=== PATIENT | female | born 1955 | race Caucasian/White ===

== ENCOUNTER 2016-08-05 07:03 | Emergency (ER) | payer BC ==
--- NOTE | 2016-08-05 07:23 | UC ---
FLU HPI - HPI Summary HPI Summary: The patient comes in today for: 1. Body aches, nasal stuffiness, hoarseness: Onset: 5 days. Palliative/provocative: Tylenol helps the body aches. Quality: Ache Region: General body. Severity: 4/10 Time: Constant. Associated symptoms: 2 days ago was feeling good. Fevers: No temperature taken. Rhinitis: Clear. Cough: present, but non-productive. Sore throat: None. Flu vaccine: None. 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 * - History of Current Complaint Chief Complaint: UCRespiratory Stated Complaint: COUGH/STUFFY HEAD/ACHY Time Seen by Provider: 08/05/16 07:16 Hx Last Menstrual Period: years ago. ?: No - Allergy/Home Medications Allergies/Adverse Reactions: Allergies Allergy/AdvReac Type Severity Reaction Status Date / Time No Known Allergies Allergy Verified 08/05/16 07:09 PMH/Surg Hx/FS Hx/Imm Hx Previously Healthy: No - Rheumatoid arthritis. Endocrine History Of: Reports: Diabetes - Borderline--diet controlled. , Dyslipidemia Denies: Thyroid Disease, Hyperthyroidism, Hypothyroidism Cardiovascular History Of: Reports: Hypertension Denies: Cardiac Disorders, Pacemaker/ICD, Myocardial Infarction, Congestive Heart Failure, Atrial Fibrillation, Deep Vein Thrombosis, Bleeding Disorders Respiratory History Of: Denies: COPD, Asthma GI/ History Of: Reports: Gastroesophageal Reflux Denies: Ulcer, Gastrointestinal Bleed, Gall Bladder Disease, Kidney Stones, Diverticulitis, Renal Disease, Urosepsis Neurological History Of: Denies: TIA, CVA, Dementia, Seizures, Migraine Psychological History Of: Denies: Anxiety, Depression, Bipolar Disorder, Schizophrenia, Post Traumatic Stress Disorder Cancer History Of: Reports: Breast Cancer - left, 2012 Denies: Lung Cancer, Colorectal Cancer, Prostate Cancer, Cervical Cancer Other History Of: Hepatitis B - She had hepatitis when she was 16 years old-- type is unknown. Negative For: HIV, Hepatitis C, Anticoagulant Therapy - Surgical History Surgical History: Yes Surgery Procedure, Year, and Place: Left Breast Lumpectomy, 2012, [place]. Complete Hysterectomy, (age-37) 1992, [facility] - Family History Known Family History: Positive: Hypertension, Diabetes - Social History Alcohol Use: Occasionally Substance Use Type: None Smoking Status (MU): Former Smoker Have You Smoked in the Last Year: No When Did the Patient Quit Smoking/Using Tobacco: 35 years ago - Immunization History Most Recent Influenza Vaccination: Not this Season Review of Systems Constitutional: Negative Skin: Negative Eyes: Negative ENT: Nasal Discharge Respiratory: Cough Cardiovascular: Negative Gastrointestinal: Negative Musculoskeletal: Arthralgia, Myalgia All Other Systems Reviewed And Are Negative: Yes Physical Exam Triage Information Reviewed: Yes Appearance: Well-Appearing, No Pain Distress, Well-Nourished Vital Signs: Initial Vital Signs Temp 98.3 F 08/05/16 07:11 Pulse 72 08/05/16 07:11 Resp 18 08/05/16 07:11 BP 120/78 08/05/16 07:11 Pulse Ox 98 08/05/16 07:11 Vital Signs Reviewed: Yes Eyes: Positive: Conjunctiva Clear. Negative: Discharge ENT: Positive: Hearing grossly normal, Nasal congestion, Muffled/hoarse voice. Negative: Pharyngeal erythema, Nasal drainage, TM bulging, TM dull, TM red, Tonsillar swelling, Tonsillar exudate Dental: Negative: Gross Decay/Caries @, Dental Fracture @ Neck: Positive: Supple, Nontender, No Lymphadenopathy. Negative: Nuchal Rigidity Respiratory: Positive: Chest non-tender, Lungs clear, No respiratory distress, No accessory muscle use. Negative: Respiratory distress, Crackles, Wheezing Cardiovascular: Positive: RRR, No Murmur Abdomen Description: Positive: Nontender, No Organomegaly, Soft. Negative: Distended, Guarding Musculoskeletal: Positive: Strength Intact, ROM Intact Neurological: Positive: Alert, Muscle Tone Normal Psychological: Positive: Age Appropriate Behavior, Consolable Skin: Negative: rashes, breakdown Flu Course/Dx - Course Course Of Treatment: Patient was told that she appears to have viral syndrome. She was offered flu testing, and treatment, but she declined. She declined any NSAIDS. Discussion on antibitoics ensued, and how I did not think that they would help, but she countered stating that she develops upper respiratory bacterial infections and wanted an antibiotic prescription anyway. - Differential Dx/Diagnosis Provider Diagnoses: viral syndrome. upper respiratory infection. Discharge - Discharge Plan Condition: Stable Disposition: HOME Patient Education Materials: Viral Syndrome (ED), Upper Respiratory Infection ( ED) Referrals: Loulou Salazar PA [Primary Care Provider] - 1 Week (Please see your primary care provider in about a week to see how well you are doing. If you get worse, please be seen sooner.)
[2016-08-05 07:30] VITALS: BP 120/78
== END 2016-08-05 07:48 | disposition home or self-care (01) ==
LOC: UCCORT 07:03
DX: B34.9 Viral infection, unspecified (principal); J06.9 Acute upper respiratory infection, unspecified; Z85.3 Personal history of malignant neoplasm of breast; Z87.891 Personal history of nicotine dependence
CPT/HCPCS: 99212; G0463

== ENCOUNTER 2017-04-03 16:49 | Emergency (ER) | payer BC ==
[2017-04-03 17:57] VITALS: BP 158/83
--- NOTE | 2017-04-03 18:31 | RAD ---
Indication: LEFT ankle pain and swelling following injury one month ago. Comparison: No relevant prior exams available on the [facility] [place] PACS for comparison. Technique: AP, mortise, and lateral views LEFT ankle. Report: Normal articular alignment and preserved joint spaces. Negative for fracture or osteochondral lesion. No suggestion of talocrural joint effusion. Minimal Achilles tendon insertion bone spur. Unremarkable soft tissue contours. IMPRESSION: Negative exam.
--- NOTE | 2017-04-03 18:50 | UC ---
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 ?: No Onset/Duration: Sudden Onset, Lasting Weeks, Worse Since - past few days Severity Initially: Mild Severity Currently: Moderate Pain Intensity: 6 Pain Scale Used: 0-10 Numeric Aggravating Factor(s): Standing, Ambulation Alleviating Factor(s): Rest, Elevation Able to Bear Weight: Yes - Allergies/Home Medications Allergies/Adverse Reactions: Allergies Allergy/AdvReac Type Severity Reaction Status Date / Time No Known Allergies Allergy Verified 04/03/17 17:57 PMH/Surg Hx/FS Hx/Imm Hx Previously Healthy: No Endocrine History: Dyslipidemia Cardiovascular History: Hypertension GI/ History: Gastroesophageal Reflux Other History Of: Hepatitis B - She had hepatitis when she was 16 years old-- type is unknown. Negative For: HIV, Hepatitis C, Anticoagulant Therapy - Surgical History Surgical History: Yes Surgery Procedure, Year, and Place: Left Breast Lumpectomy, 2012, [place]. Complete Hysterectomy, (age-37) 1992, [facility] - Family History Known Family History: Positive: Hypertension, Diabetes - Social History Occupation: Employed Full-time Lives: With Family Alcohol Use: Occasionally Substance Use Type: None Smoking Status (MU): Former Smoker Have You Smoked in the Last Year: No When Did the Patient Quit Smoking/Using Tobacco: 35 years ago - Immunization History Most Recent Influenza Vaccination: Not this Season Review of Systems Constitutional: Negative Skin: Negative Eyes: Negative ENT: Negative Respiratory: Negative Cardiovascular: Negative Gastrointestinal: Negative Genitourinary: Negative Motor: Negative Neurovascular: Negative Musculoskeletal: Arthralgia - lateral left ankle, Edema Neurological: Negative Psychological: Negative Is Patient Immunocompromised?: No All Other Systems Reviewed And Are Negative: Yes Physical Exam Triage Information Reviewed: Yes Appearance: Well-Appearing, No Pain Distress, Well-Nourished Vital Signs: Initial Vital Signs Temp 98.6 F 04/03/17 17:49 Pulse 59 04/03/17 17:49 Resp 12 04/03/17 17:49 BP 158/83 04/03/17 17:49 Pulse Ox 96 04/03/17 17:49 Vital Signs Reviewed: Yes Eye Exam: Normal Eyes: Positive: Conjunctiva Clear ENT Exam: Normal ENT: Positive: Normal ENT inspection, Hearing grossly normal. Negative: Nasal congestion, Nasal drainage, Trismus, Muffled/hoarse voice Dental Exam: Normal Neck exam: Normal Neck: Positive: Supple, Nontender Respiratory Exam: Normal Respiratory: Positive: Chest non-tender, No respiratory distress, No accessory muscle use Cardiovascular Exam: Normal Cardiovascular: Positive: RRR, Pulses Normal, Brisk Capillary Refill Musculoskeletal Exam: Normal Musculoskeletal: Positive: No Edema, Strength Limited @ - left ankle, ROM Limited @ - left ankle Neurological Exam: Normal Neurological: Positive: Alert, Muscle Tone Normal Psychological Exam: Normal Psychological: Positive: Normal Response To Family Skin Exam: Normal Diagnostics - Radiology No standard instances Xray Interpretation: No Acute Changes Radiology Interpretation Completed By: ED Physician, Radiologist Lower Extremity Course/Dx - Course Course Of Treatment: cam boot, rice, tylenol/ibuprofen follow with ortho this week - Differential Dx/Diagnosis Differential Diagnosis/HQI/PQRI: Contusion, Fracture (Closed), Sprain, Strain Provider Diagnoses: Left ankle injury Discharge - Discharge Plan Condition: Stable Disposition: HOME Patient Education Materials: Hypertension (ED), RICE Therapy (ED), Swollen Ankle Joint (ED) Referrals: Pérez Chaudhary MD [Medical Doctor] - 5 Days Loulou Salazar PA [Primary Care Provider] - 2 Weeks
== END 2017-04-03 19:07 | disposition home or self-care (01) ==
LOC: UCCORT 16:49
DX: Z87.891 Personal history of nicotine dependence (principal); S99.912A Unspecified injury of left ankle, initial encounter; X50.1XXA Overexertion from prolonged static or awkward postures, initial encounter; Y93.9 Activity, unspecified; Y92.9 Unspecified place or not applicable; Y99.9 Unspecified external cause status
CPT/HCPCS: 99212; G0463

== ENCOUNTER 2017-05-12 16:24 | Emergency (ER) | payer BC ==
[2017-05-12 16:50] VITALS: BP 132/82
--- NOTE | 2017-05-12 17:36 | UC ---
Throat Pain/Nasal Adalberto HPI - HPI Summary HPI Summary: Nasal congestion and yellow drainage for about 4-5 days. There is no fever or facial/dental pain. - History of Current Complaint Chief Complaint: UCRespiratory Stated Complaint: CONGESTION Time Seen by Provider: 05/12/17 17:27 Hx Obtained From: Patient Hx Last Menstrual Period: n/a Onset/Duration: Gradual Onset, Lasting Days Severity: Mild Cough: Nonproductive Associated Signs & Symptoms: Positive: Nasal Discharge. Negative: Dysphagia, Sinus Discomfort, Fever, Vomiting, Rash - Epiglottits Risk Factors Epiglottis Risk Factors: Negative - Allergies/Home Medications Allergies/Adverse Reactions: Allergies Allergy/AdvReac Type Severity Reaction Status Date / Time No Known Allergies Allergy Verified 05/12/17 16:49 PMH/Surg Hx/FS Hx/Imm Hx Previously Healthy: Yes Other History Of: Hepatitis B - She had hepatitis when she was 16 years old-- type is unknown. Negative For: HIV, Hepatitis C, Anticoagulant Therapy - Surgical History Surgical History: Yes Surgery Procedure, Year, and Place: Left Breast Lumpectomy, 2012, [place]. Complete Hysterectomy, (age-37) 1992, [facility] - Family History Known Family History: Positive: Hypertension, Diabetes - Social History Alcohol Use: Occasionally Substance Use Type: None Smoking Status (MU): Former Smoker Have You Smoked in the Last Year: No When Did the Patient Quit Smoking/Using Tobacco: 35 years ago - Immunization History Most Recent Influenza Vaccination: Not this Season Review of Systems ENT: Sinus Congestion All Other Systems Reviewed And Are Negative: Yes Physical Exam Triage Information Reviewed: Yes Appearance: Well-Appearing, No Pain Distress, Well-Nourished Vital Signs: Initial Vital Signs Temp 98.2 F 05/12/17 16:47 Pulse 71 05/12/17 16:47 Resp 16 05/12/17 16:47 BP 132/82 05/12/17 16:47 Pulse Ox 97 05/12/17 16:47 Vital Signs Reviewed: Yes Eyes: Positive: Conjunctiva Clear ENT: Positive: Nasal congestion, Uvula midline. Negative: Pharyngeal erythema, Nasal drainage, TMs normal, TM bulging, TM dull, TM red, Tonsillar swelling, Tonsillar exudate, Trismus, Muffled voice, Hoarse voice, Dental tenderness, Sinus tenderness Neck: Positive: Supple, Nontender, No Lymphadenopathy Respiratory: Positive: Chest non-tender, Lungs clear, Normal breath sounds, No respiratory distress, No accessory muscle use. Negative: Respiratory distress, Decreased breath sounds, Accessory muscle use, Crackles, Rhonchi, Stridor Cardiovascular: Positive: RRR, No Murmur, Pulses Normal, Brisk Capillary Refill , Tachycardia Abdomen Description: Positive: Nontender, No Organomegaly, Soft, Bruit. Negative: CVA Tenderness (R), CVA Tenderness (L), Distended, Guarding Musculoskeletal: Positive: Strength Intact, ROM Intact, No Edema Neurological: Positive: Alert, Muscle Tone Normal. Negative: Fatigued Skin: Negative: rashes Throat Pain/Nasal Course/Dx - Course Course Of Treatment: URI. - Differential Dx/Diagnosis Provider Diagnoses: uri Discharge - Discharge Plan Condition: Good Disposition: HOME Prescriptions: Amoxicillin PO (*) [Amoxicillin 500 MG CAP*] 500 mg PO TID #30 cap Patient Education Materials: Upper Respiratory Infection (ED) Referrals: Loulou Salazar PA [Primary Care Provider] - If Needed Additional Instructions: Decongestants and/or netti pot.
== END 2017-05-12 17:40 | disposition home or self-care (01) ==
LOC: UCCORT 16:24
DX: J06.9 Acute upper respiratory infection, unspecified (principal); Z87.891 Personal history of nicotine dependence
CPT/HCPCS: 99212; G0463

== ENCOUNTER 2018-05-17 14:58 | Emergency (ER) | payer BC ==
[2018-05-17 15:35] VITALS: BP 133/77
--- NOTE | 2018-05-17 15:53 | UC ---
Throat Pain/Nasal Adalberto HPI - HPI Summary HPI Summary: 63-year-old female presents with onset of general malaise, fatigue, body aches, subjective fever, chills, mild nasal congestion, sore throat, and a nonproductive cough 5 days ago. States fever, chills, and body aches subsided 2 days ago but continues to have other symptoms. Denies headache, sinus pain, ear pain, dysphagia, chest pain, shortness of breath, abdominal pain, nausea, or vomiting. Has not received flu shot this year. - History of Current Complaint Chief Complaint: UCGeneralIllness Stated Complaint: ST,COUGH Time Seen by Provider: 05/17/18 15:34 Hx Obtained From: Patient Hx Last Menstrual Period: n/a Onset/Duration: Sudden Onset, Lasting Days - 5 Severity: Moderate Pain Intensity: 7 Cough: Nonproductive Associated Signs & Symptoms: Positive: Nasal Discharge, Fever. Negative: Dysphagia, Drooling, Wheezing, Hoarseness, Sinus Discomfort, Vomiting, Rash - Allergies/Home Medications Allergies/Adverse Reactions: Allergies Allergy/AdvReac Type Severity Reaction Status Date / Time Sulfa (Sulfonamide Allergy Unknown Verified 05/17/18 15:35 Antibiotics) Reaction Details Home Medications: Home Medications D-Methorphan/PE/Acetaminophen [Day Time Cold-Flu Liquid] 1 each PO ONCE [History Confirmed 05/17/18] Itraconazole 100 mg PO BID 05/17/18 [History Confirmed 05/17/18] PMH/Surg Hx/FS Hx/Imm Hx Cardiovascular History: Hypertension GI/ History: Gastroesophageal Reflux Other History Of: Hepatitis B - She had hepatitis when she was 16 years old-- type is unknown. Negative For: HIV, Hepatitis C, Anticoagulant Therapy - Surgical History Surgical History: Yes Surgery Procedure, Year, and Place: Left Breast Lumpectomy, 2012, [place]. Complete Hysterectomy, (age-37) 1992, [facility] - Family History Known Family History: Positive: Hypertension, Diabetes - Social History Occupation: Employed Full-time Lives: With Family Alcohol Use: Occasionally Substance Use Type: None Smoking Status (MU): Former Smoker Have You Smoked in the Last Year: No When Did the Patient Quit Smoking/Using Tobacco: 35 years ago - Immunization History Most Recent Influenza Vaccination: Not this Season Review of Systems Constitutional: Fever, Chills, Fatigue Skin: Negative Eyes: Negative ENT: Sore Throat, Nasal Discharge Respiratory: Cough Cardiovascular: Negative Gastrointestinal: Negative Is Patient Immunocompromised?: No All Other Systems Reviewed And Are Negative: Yes Physical Exam Triage Information Reviewed: Yes Appearance: Well-Appearing, No Pain Distress, Well-Nourished Vital Signs: Initial Vital Signs Temp 98.1 F 05/17/18 15:31 Pulse 71 05/17/18 15:31 Resp 17 05/17/18 15:31 BP 133/77 05/17/18 15:31 Pulse Ox 98 05/17/18 15:31 Eyes: Positive: Conjunctiva Clear. Negative: Discharge ENT: Positive: Hearing grossly normal, Pharyngeal erythema - Mild, Nasal congestion, TMs normal, Uvula midline. Negative: Nasal drainage, Tonsillar swelling, Tonsillar exudate, Trismus, Muffled voice, Sinus tenderness Neck: Positive: Supple, Nontender, No Lymphadenopathy Respiratory: Positive: Chest non-tender, Lungs clear, Normal breath sounds, No respiratory distress Cardiovascular: Positive: RRR, No Murmur Neurological: Positive: Alert Skin Exam: Normal Throat Pain/Nasal Course/Dx - Course Course Of Treatment: 63 year old female with 5 day history of flulike illness. Afebrile at time of exam. Exam remarkable for some nasal congestion, mild pharyngeal erythema, and a dry nonproductive cough. Symptoms are likely viral. Deferred flue testing at this time states patient has been symptomatic for 5 days. Recommend symptomatic treatment. She is to follow-up with her primary care provider in 7 days if no improvement in symptoms. Warning symptoms were reviewed with the patient. She verbalizes understanding and agrees with plan of care. - Differential Dx/Diagnosis Differential Diagnosis/HQI/PQRI: Influenza, Pharyngitis, Tonsillitis, URI Provider Diagnoses: Viral URI Discharge - Sign-Out/Discharge Documenting (check all that apply): Patient Departure All imaging exams completed and their final reports reviewed: No Studies - Discharge Plan Condition: Stable Disposition: HOME Prescriptions: Benzonatate CAP* [Tessalon 100 MG CAP*] 100 mg PO TID PRN #30 cap PRN Reason: Cough Patient Education Materials: Upper Respiratory Infection (ED) Referrals: Loulou Salazar PA [Primary Care Provider] - 7 Days (If no improvement) Additional Instructions: Your history and exam are consistent with viral upper respiratory infection. Viral infections do not respond to antibiotics and typically run their course over 7-10 days. Use a saline rinse kit such as Neti Pot or NeilMed at least twice a day. Start over the counter fluticasone (Flonase) nasal spray 2 sprays each nostril once a day. Take acetaminophen (Tylenol) or ibuprofen (Advil, Motrin) according to directions as needed for fever or pain. Use salt water gargles several times a day if you have a sore throat. You may also use Chloraseptic spray or Cepacol lozenges for some temporary pain relief from your sore throat. Use Tessalon Perles 1 cap every 8 hours as needed for cough. Follow-up with your primary care provider in 7 days if symptoms persist. Seek immediate medical attention if you have a persistent fever greater than 100.5 F despite taking acetaminophen or ibuprofen, you are unable to swallow, has difficulty breathing, or have any worsening of symptoms. - Billing Disposition and Condition Condition: STABLE Disposition: Home
== END 2018-05-17 15:57 | disposition home or self-care (01) ==
LOC: UCCORT 14:58
DX: J06.9 Acute upper respiratory infection, unspecified (principal); I10 Essential (primary) hypertension; K21.9 Gastro-esophageal reflux disease without esophagitis; Z88.2 Allergy status to sulfonamides; Z87.891 Personal history of nicotine dependence; Z86.19 Personal history of other infectious and parasitic diseases
CPT/HCPCS: 99212; G0463

== ENCOUNTER 2018-05-19 16:50 | Emergency (ER) | payer BC ==
[2018-05-19 17:35] VITALS: BP 146/76
--- NOTE | 2018-05-19 17:51 | UC ---
Throat Pain/Nasal Adalberto HPI - HPI Summary HPI Summary: Patient presents to urgent care with a days of progressive congestion cough and no sore throat. Patient states the cough is not productive. Patient was seen here on Wednesday for similar symptoms. Patient states she was given supportive care and treatment included Flonase. Patient's been taking Motrin Tylenol. Patient's been taking Tessalon Perles as well as [id number] decongestant. Patient states her sore throat is getting worse. Patient states it goldsmith all the way down when she tries to swallow. Patient denies chills but states low- grade fevers. Patient without headache or vision changes. Patient without ear pain. Patient status post radiation 5 years for left-sided breast cancer. Patient does not have any known lung disease. Patient's medications reviewed this visit - History of Current Complaint Chief Complaint: UCGeneralIllness Stated Complaint: SORE THROAT Time Seen by Provider: 05/19/18 17:36 Hx Obtained From: Patient Hx Last Menstrual Period: n/a ?: No Severity: Moderate Pain Intensity: 8 Pain Scale Used: 0-10 Numeric - Allergies/Home Medications Allergies/Adverse Reactions: Allergies Allergy/AdvReac Type Severity Reaction Status Date / Time Sulfa (Sulfonamide Allergy Unknown Verified 05/19/18 17:30 Antibiotics) Reaction Details PMH/Surg Hx/FS Hx/Imm Hx Previously Healthy: Yes Cancer History: Breast Cancer Other History Of: Hepatitis B - She had hepatitis when she was 16 years old-- type is unknown. Negative For: HIV, Hepatitis C, Anticoagulant Therapy - Surgical History Surgical History: Yes Surgery Procedure, Year, and Place: Left Breast Lumpectomy, 2012, [place]. Complete Hysterectomy, (age-37) 1992, [facility] - Family History Known Family History: Positive: Hypertension, Diabetes - Social History Occupation: Employed Full-time Lives: With Family Alcohol Use: Occasionally Substance Use Type: None Smoking Status (MU): Former Smoker Have You Smoked in the Last Year: No When Did the Patient Quit Smoking/Using Tobacco: 35 years ago - Immunization History Most Recent Influenza Vaccination: Not this Season Review of Systems All Other Systems Reviewed And Are Negative: Yes Constitutional: Positive: Fever - low grade ENT: Positive: Sore Throat, Sinus Congestion Respiratory: Positive: Cough Is Patient Immunocompromised?: No Physical Exam - Summary Physical Exam Summary: Vital Signs Reviewed: Yes A+Ox3, no distress Eyes: Conjunctiva Clear, GIOVANNI. EOM intact and full ENT: Hearing grossly normal TM x 2 clear, turninates boggy, mild PND, mmoist, uvula midline, no exudate, no erythema Neck: Positive: Supple Respiratory: Positive: No respiratory distress, No accessory muscle use + CTA throughout few scattered wheeze L>R no rhonci no cough Cardiovascular: RRR nl s1, s2 no m/r CBT <2 sec abd soft + BS nt/nd no guarding, no distension Musculoskeletal Exam: WADE x 4 without difficulty Strength Intact, ROM Intact Neurological: Positive: Alert, + sensation throughout Psychological: Positive: Normal Response To Family Skin: Positive: no rash, no ecchymosis Triage Information Reviewed: Yes Vital Signs: Initial Vital Signs Temp 99.2 F 05/19/18 17:30 Pulse 71 05/19/18 17:30 Resp 18 05/19/18 17:30 BP 146/76 05/19/18 17:30 Pulse Ox 99 05/19/18 17:30 Re-Evaluation - Re-Evaluation First Eval Re-Evaluation Time: 18:47 Change: Improved Comment: wheezing resolved. pt states throat pain improved, but does not want for home. Doxy. MDI. diflucan prn. continue flonase. return precautions. secretion precaution Throat Pain/Nasal Course/Dx - Course Course Of Treatment: Patient presents with 7 days progressive congestion cough and sore throat. Patient was seen here on Wednesday given supportive treatment. Patient states his sore throat has gotten worse. Patient also with a slight wheezes and nonproductive cough. On exam vital signs are stable. Patient does have wheezing left side. We'll give a DuoNeb and check viscous lidocaine. Rapid strep is negative. Likely will serve course of antibiotics for bronchitis this patient's been sick for over a week and seems that she is progressing worse. Patient comfortable in agreement with plan. We'll reassess after neb. BP slightly elevated - f/u with PCP - Differential Dx/Diagnosis Provider Diagnoses: acute bronchitis Discharge - Sign-Out/Discharge Documenting (check all that apply): Patient Departure All imaging exams completed and their final reports reviewed: No Studies - Discharge Plan Condition: Stable Disposition: HOME Prescriptions: Albuterol HFA INHALER* [Ventolin HFA Inhaler*] 2 puff INH Q4H PRN #1 mdi PRN Reason: wheeze DOXYcycline CAP(*) [DOXYcycline 100MG CAP(*)] 100 mg PO BID #14 cap Fluconazole [Diflucan 150 MG (NF)] 150 mg PO ONCE PRN #1 tab PRN Reason: vaginal yeast infection Patient Education Materials: Acute Bronchitis (ED) Forms: *Work Release Referrals: Loulou Salazar PA [Primary Care Provider] - Additional Instructions: -Take antibiotics exactly as prescribed until gone -Use your albuterol puffer - 2 puffs ever 4-6 hours for the next 2 days - then as needed -continue with flonase -Stay well hydrated - avoid excess caffeine and all alcohol - eat regular, healthy meals - - humidify the air in the room where you sleep - boil water, run a hot steam shower, vaporizer, cups of water by heat register - okay to take over the counter decongestant and cough medication -- These infections are spread by secretions - do NOT share eating or drinking utensils - clean items you share with other people such as cell phones, computer mouse, TV remote, computer tablets,etc.. Once you have been antibiotics for 2 days, change your toothbrush and your pillowcase. - you were given a prescription to treat yeast infection - if you develop a yeast infection from the antibiotic, okay to take as prescribed -Contact your doctor to arrange a follow-up appointment this week. Call your doctor, return here or go to the emergency department with any questions or concerns - Billing Disposition and Condition Condition: STABLE Disposition: Home
[2018-05-19] MEDS ORDERED: Albuterol/Ipratropium NEB.SOL* Albuterol 2.5 MG/Ipratropium 0.5 MG 3 ML INH ONE (18:01)
[2018-05-19] MEDS ORDERED: Lidocaine 2% VISCOUS* 15 ML UDC PO ONE (18:01)
== END 2018-05-19 19:01 | disposition home or self-care (01) ==
LOC: UCCORT 16:50
DX: J20.9 Acute bronchitis, unspecified (principal); Z88.2 Allergy status to sulfonamides; Z87.891 Personal history of nicotine dependence
CPT/HCPCS: 87651; 99212; A9270-GY; G0463

== ENCOUNTER 2018-05-22 07:02 | Emergency (ER) | payer BC ==
[2018-05-22 07:18] VITALS: BP 131/63
--- NOTE | 2018-05-22 07:40 | UC ---
Respiratory Complaint HPI - HPI Summary HPI Summary: This is third [facility] visit for this 63-year-old female in the past 5 or 6 days. She has been ill for approximately a week and a half. She has had cough and wheezing. He denies any chest pain or shortness of breath. She has had no fever or chills. She was started on a metered dose inhaler and doxycycline a few days ago's. She has not improved. She has a remote history of smoking. She has a history of breast cancer. There's been no nausea vomiting or diarrhea. - History of Current Complaint Chief Complaint: UCRespiratory Stated Complaint: COUGH Time Seen by Provider: 05/22/18 07:27 Hx Obtained From: Patient Hx Last Menstrual Period: n/a Onset/Duration: Gradual Onset, Lasting Days Timing: Constant Severity Initially: Mild Severity Currently: Moderate Pain Intensity: 0 Pain Scale Used: 0-10 Numeric Character: Cough: Productive - at times Alleviating Factors: Bronchodilator Associated Signs And Symptoms: Positive: Wheezing - Allergies/Home Medications Allergies/Adverse Reactions: Allergies Allergy/AdvReac Type Severity Reaction Status Date / Time Sulfa (Sulfonamide Allergy Unknown Verified 05/22/18 07:14 Antibiotics) Reaction Details Home Medications: Home Medications Lansoprazole CAP (NF) [Prevacid CAP (NF)] 30 mg PO DAILY 05/22/18 [History Confirmed 05/22/18] amLODIPine TAB* [Norvasc 5 mg TAB*] 2.5 mg PO DAILY 05/22/18 [History Confirmed 05/22/18] PMH/Surg Hx/FS Hx/Imm Hx Previously Healthy: Yes Cardiovascular History: Hypertension Respiratory History: Bronchitis, Pneumonia Cancer History: Breast Cancer Other History Of: Hepatitis B - She had hepatitis when she was 16 years old-- type is unknown. Negative For: HIV, Hepatitis C, Anticoagulant Therapy - Surgical History Surgical History: Yes Surgery Procedure, Year, and Place: Left Breast Lumpectomy, 2012, [place]. Complete Hysterectomy, (age-37) 1992, [facility] - Family History Known Family History: Positive: Hypertension, Diabetes - Social History Alcohol Use: Occasionally Substance Use Type: None Smoking Status (MU): Former Smoker Length of Time of Smoking/Using Tobacco: ~1 PPD x 8 Years Have You Smoked in the Last Year: No When Did the Patient Quit Smoking/Using Tobacco: ~1977 - Immunization History Most Recent Influenza Vaccination: Not this Season Review of Systems All Other Systems Reviewed And Are Negative: Yes Constitutional: Positive: Fatigue Skin: Positive: Negative Eyes: Positive: Negative ENT: Positive: Negative Respiratory: Positive: Cough, Other - wheezing Cardiovascular: Positive: Negative Gastrointestinal: Positive: Negative Genitourinary: Positive: Negative Motor: Positive: Negative Neurovascular: Positive: Negative Musculoskeletal: Positive: Negative Neurological: Positive: Negative Psychological: Positive: Negative Physical Exam Triage Information Reviewed: Yes Appearance: Well-Appearing, No Pain Distress, Well-Nourished Vital Signs: Initial Vital Signs Temp 98.6 F 05/22/18 07:11 Pulse 66 05/22/18 07:11 Resp 18 05/22/18 07:11 BP 131/63 05/22/18 07:11 Pulse Ox 98 05/22/18 07:11 Vital Signs Reviewed: Yes Eyes: Positive: Conjunctiva Clear ENT: Positive: Hearing grossly normal. Negative: Nasal congestion, Nasal drainage, Trismus, Muffled voice, Hoarse voice Neck: Positive: Supple, Nontender, No Lymphadenopathy Respiratory: Positive: No respiratory distress, No accessory muscle use, Wheezing - with forced exp R>L Cardiovascular: Positive: RRR, No Murmur. Negative: Tachycardia, Bradycardia Musculoskeletal: Positive: ROM Intact, No Edema Neurological: Positive: Alert Psychological Exam: Normal Skin Exam: Normal UC Diagnostic Evaluation - Laboratory O2 Sat by Pulse Oximetry: 98 - Radiology Radiology Interpretation Completed By: Radiologist Summary of Radiographic Findings: 0.5 CM RIGHT LOWER LUNG NODULE. GIVEN THE HISTORY OF MALIGNANCY, NEOPLASM IS WITHIN THE. DIFFERENTIAL. RECOMMEND CONSIDERATION OF FURTHER EVALUATION WITH CT OF THE CHEST IN THE. NONACUTE SETTING Respiratory Course/Dx - Differential Dx/Diagnosis Provider Diagnoses: Acute Bronchitis with bronchospasm. pulmonary nodule RLL Discharge - Sign-Out/Discharge Documenting (check all that apply): Patient Departure All imaging exams completed and their final reports reviewed: Yes - Discharge Plan Condition: Stable Disposition: HOME Prescriptions: predniSONE [Deltasone 20 MG TAB] 40 mg PO DAILY #10 tab Patient Education Materials: Acute Bronchitis (ED), Pulmonary Nodules (ED) Forms: *Work Release Referrals: Loulou Salazar PA [Primary Care Provider] - (recheck in 4 days if not improved) Additional Instructions: the radiologist made note of a 5mm pulmonary nodule in your right lower lung he has suggested you have a CT scan of your chest this can be ordered by your primary care provider recheck for new or worsening symptoms - Billing Disposition and Condition Condition: STABLE Disposition: Home
== END 2018-05-22 08:15 | disposition home or self-care (01) ==
LOC: UCCORT 07:02
DX: J20.9 Acute bronchitis, unspecified (principal); R91.1 Solitary pulmonary nodule; Z87.891 Personal history of nicotine dependence; Z85.3 Personal history of malignant neoplasm of breast; Z88.1 Allergy status to other antibiotic agents; I10 Essential (primary) hypertension
CPT/HCPCS: 71046; 99212; G0463

== ENCOUNTER 2018-06-03 14:29 | Emergency (ER) | payer BC ==
--- OUTSIDE RECORDS SUMMARY | 2018-06-03 16:03 | XMS REPORT ---
:1955 External Reference #:[id number] Author Organization [facility] Address [address], [address] [place] [address] Phone [phone] Care Team Providers Name Role Phone Karol Salazar RPAC Care Team Information Interactive Media Director Unavailable Karol Salazar RPAC Primary Care Physician Unavailable Payers Type Date Identification Numbers Payment Provider Subscriber Commercial Effective: Policy Number: Katie Sims 2011 [id number] Group Number: [id number] [address] [address] Group Name: [id number] PayID: [id number] Problems Date Description Provider Status Onset: 07/03/2003 Localized, primary osteoarthritis of Active the hand Onset: 03/18/2014 Hyperglycemia Karol Salazar RPAC Active Onset: 08/25/2011 Hyperlipidemia Karol Salazar RPAC Active Onset: 08/25/2011 Benign essential hypertension Karol Salazar RPAC Active Onset: 08/25/2011 Diverticular disease of colon Karol Salazar RPAC Active Onset: 08/25/2011 Contact dermatitis due to detergent Karol Salazar RPAC Active Onset: 11/30/2014 Undifferentiated connective tissue Karol Salazar RPAC Active disease Note: 2013 Onset: 01/10/2015 Infiltrating duct carcinoma of Karol Salazar RPAC Active breast Note: left, 2012 Onset: 03/24/2017 Screening for malignant neoplasm of Young Tuan, MD Active colon Onset: 03/24/2017 Heartburn Jose Dickerson MD Active Onset: 04/07/2017 Polyp of colon Karol Salazar [facility] Active Note: SSA/P 03/2017 Onset: 03/23/2018 Gastro-esophageal reflux disease with Jose Dickerson MD Active esophagitis Onset: 03/23/2018 Hemorrhage of rectum and anus Jose Dickerson MD Active Onset: 05/14/2017 Gastro-esophageal reflux disease with Jose Dickerson MD Active esophagitis Family History Date Family Member(s) Problem(s) Comments General Non Contributory Father Arthritis inflammatory Mother due to Diabetes () Mother due to Hypertension () Mother due to Macular degeneration () Social History Type Date Description Comments Marital Status Lives With Spouse Home Environment Lives With Diet Patient follows no dietary restrictions 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 active 09/16/2015 Arimidex vaginal dryness active 10/16/2014 NKDA inactive Medications Medication Date Status Form Strength Qnty SIG Indications Ordering Provider Ceftin 05/27/ Active Tablets 500mg 20tabs 1 tab by Ang2017 mouth twice Lc, a day M.DAdrian Cheratussin ac 05/27/ Active Syrup 100-10mg/ 236ml 5-10 Ang 2017 5ML milliliters Lc, by mouth M.DAdrian every 4 hour as needed cough Itraconazole 02/25/ Hx Capsules 100mg 180caps 1 po bid B35.1 Ang 2017 - Lc 07/11/ Hemal 2018 Lansoprazole 07/29/ Active Capsules 15mg 90caps 1 By Mouth Bisi Fry DR Every Day Hemal Platt Amlodipine 01/10/ Active Tablets 2.5mg 90tabs Take 1 I10 Ramakrishna Fry 2015 Tablet Daily Hemal Platt Vitamin D 00/ Active Tablets 1000Unit 1 by mouth Unknown 0000 every day Calcium 600+D / Active Tablets 600-400mg 1 by mouth Unknown High Potency 0000 -Unit daily Lansoprazole 03/27/ Hx Capsules 30mg 90caps Take 1 Ang 2017 - DR Tamera Platt, 07/29/ Daily M.D. 2018 Dulcolax 03/24/ Hx Tablets 5mg 4tabs [address] taken a 8pm MD Tuan the day before the procedure Magnesium 03/24/ Hx Solution 1.745GM/3 296ml 1 bottle po Z12. Young Citrate 2016 0ML x one as MD Tuan directed Suprep Bowel 03/24/ Hx Solution 17.5-3.13 1kit /2 Z12. Young Prep Kit 2017 -1.6GM/ afternoon MD Tuan 0ML before and 1/2 in the morning of procedure. Pyridium 06/30/ Hx Tablets 200mg 15tabs 1 tab by N23 Winston 2015 mouth three Pedro E., times a day DO as needed for bladder discomfort Meclizine HCL 10/20/ Hx Tablets 12.5mg 30tabs one-two tabs H81.10 Winston 2015 - every 6 hour Pedro Dillon, 03/12/ by mouth as DO 2016 needed dizziness Cefprozil 10/02/ Hx Tablets 500mg 20tabs 1 tab by J20.9 Winston 2016 - mouth twice Pedro EAdrian, 10/20/ a day DO 2016 Dulera 10/02/ Hx Aerosol 100-5mcg/ sample 1-2 puffs J20.9 Winston 2015 - Act twice a day Pedro Dillon, 10/20/ DO 2016 Atorvastatin 09/03/ Hx Tablets 80mg 90tabs Take 1 Bryan Montero 2016 Tablet Daily Pedro Dillon, DO Plaquenil 08/07/ Hx Tablets 200mg 1 tab by Palma 2015 mouth once a Reema vieyra MD Azithromycin 01/03/ Hx Tablets 250mg 6tabs Take 2 tabs 786.2 Winston 2014 PO day 1 and Pedro Dillon, 1 tab po day DO 2-5 Sporanox 10/31/ Hx Capsules 100mg 90caps 1 cap by Susan 2014 mouth every Manuela vieyra M.D. Celebrex / Hx Capsules 200mg 90caps 1 by mouth Jamila Montero - every day Pedro Dillon 02/25/ patrician DO 2018 Halobetasol / Hx Ointment 0.05% apply to the Unknown Propionate 0000 - area twice a 2014 Lisinopril 00/ Hx Tablets 10mg 1 by mouth Unknown 0000 every day Venlafaxine / Hx Caps ER 37.5mg 300mg every Unknown HCL ER 0000 - 24HR day 2014 Itraconazole / Hx Capsules 100mg at bedtime Unknown 0000 - 2014 Amoxicillin 00/ Hx Capsules 500mg 1 cap by Unknown 0000 - mouth three 03/18/ times a day 2015 for a tooth Lansoprazole / Hx Capsules 30mg 90caps Take [address], Daily DO Prevacid / Hx Capsules 30mg 1 by mouth Unknown 0000 - DR every day 2016 Atorvastatin / Hx Tablets 80mg 90tabs Take 1 Fry, Calcium 0000 - Tablet Daily Lc 04/12/ Hemal 2018 Immunizations CPT Code Status Date Vaccine Lot # [id number] Given 04/04/2013 flu vaccination 61264 Given 05/10/2008 Pneumovax Injection 20256 Given 01/07/2006 Tdap injection 66313 Given 06/07/2002 flu vaccination 03157 Given 05/20/2000 Influenza Virus Whole 93939 Given 04/16/1999 Influenza Virus Vaccine 89437 Given 05/20/1998 Pneumovax Injection 61224 Given 05/20/1998 Influenza Virus Vaccine 67178 Given 05/09/1997 Influenza Virus Vaccine Vital Signs Date Vital Result Comment 03/23/2018 BP Systolic Lying Down Resting Right Arm 142 mmHg BP Diastolic Lying Down Resting Right Arm 85 mmHg Heart Rate 70 /min Respiratory Rate 16 /min Height 63 inches 5'3" Weight 155.00 lb BMI (Body Mass Index) 27.5 kg/m2 BSA (Body Surface Area) 1.74 m2 [place] body weight in kilograms 52 O2 % BldC Oximetry 96 % 02/25/2018 BP Systolic 141 mmHg BP Diastolic 78 mmHg Body Temperature 96.8 F Heart Rate 82 /min Respiratory Rate 18 /min Height 65 inches 5'5" Weight 152.50 lb BMI (Body Mass Index) 25.4 kg/m2 BSA (Body Surface Area) 1.76 m2 [place] body weight in kilograms 57 O2 % BldC Oximetry 95 % 07/29/2017 BP Systolic Sitting Right Arm 124 mmHg BP Diastolic Sitting Right Arm 72 mmHg Heart Rate 57 /min Height 65 inches 5'5" Weight 152.00 lb BMI (Body Mass Index) 25.3 kg/m2 BSA (Body Surface Area) 1.76 m2 [place] body weight in kilograms 57 O2 % BldC Oximetry 94 % ra 05/14/2017 BP Systolic Sitting Left Arm 130 mmHg BP Diastolic Sitting Left Arm 82 mmHg Heart Rate 84 /min Respiratory Rate 16 /min Height 65 inches 5'5" Weight 149.00 lb BMI (Body Mass Index) 24.8 kg/m2 BSA (Body Surface Area) 1.75 m2 [place] body weight in kilograms 57 03/24/2017 BP Systolic Sitting Left Arm 120 mmHg BP Diastolic Sitting Left Arm 80 mmHg Heart Rate 78 /min Respiratory Rate 16 /min Height 65 inches 5'5" Weight 151.00 lb BMI (Body Mass Index) 25.1 kg/m2 BSA (Body Surface Area) 1.76 m2 [place] body weight in kilograms 57 03/09/2017 BP Systolic Sitting Right Arm 132 mmHg BP Diastolic Sitting Right Arm 76 mmHg Heart Rate 68 /min Height 65 inches 5'5" Weight 151.00 lb BMI (Body Mass Index) 25.1 kg/m2 BSA (Body Surface Area) 1.76 m2 [place] body weight in kilograms 57 O2 % BldC Oximetry 97 % ra 09/15/2016 BP Systolic 138 mmHg BP Diastolic 84 mmHg Heart Rate 72 /min Height 65 inches 5'5" Weight 148.00 lb BMI (Body Mass Index) 24.6 kg/m2 BSA (Body Surface Area) 1.74 m2 06/30/2016 BP Systolic Sitting Right Arm 136 mmHg BP Diastolic Sitting Right Arm 76 mmHg Body Temperature 98.4 F Height 65 inches 5'5" Weight 149.50 lb BMI (Body Mass Index) 24.9 kg/m2 BSA (Body Surface Area) 1.75 m2 03/12/2016 BP Systolic 136 mmHg BP Diastolic 78 mmHg Height 65 inches 5'5" Weight 142.25 lb BMI (Body Mass Index) 23.7 kg/m2 BSA (Body Surface Area) 1.71 m2 10/21/2015 BP Systolic 118 mmHg BP Diastolic 66 mmHg Body Temperature 97.3 F Heart Rate 58 /min Respiratory Rate 16 /min Height 65 inches 5'5" Weight 139.00 lb BMI (Body Mass Index) 23.1 kg/m2 BSA (Body Surface Area) 1.69 m2 O2 % BldC Oximetry 96 % 10/03/2015 BP Systolic 132 mmHg BP Diastolic 72 mmHg Body Temperature 97.1 F Heart Rate 82 /min Height 65 inches 5'5" Weight 139.00 lb BMI (Body Mass Index) 23.1 kg/m2 BSA (Body Surface Area) 1.69 m2 O2 % BldC Oximetry 96 % 09/12/2015 BP Systolic Sitting Left Arm 128 mmHg BP Diastolic Sitting Left Arm 76 mmHg Heart Rate 74 /min Respiratory Rate 19 /min Height 65 inches 5'5" Weight 140.00 lb BMI (Body Mass Index) 23.3 kg/m2 BSA (Body Surface Area) 1.70 m2 03/05/2015 BP Systolic 130 mmHg BP Diastolic 70 mmHg Height 65 inches 5'5" Weight 149.50 lb BMI (Body Mass Index) 24.9 kg/m2 BSA (Body Surface Area) 1.75 m2 01/25/2015 BP Systolic 132 mmHg BP Diastolic 78 mmHg Height 65 inches 5'5" Weight 148.25 lb BMI (Body Mass Index) 24.7 kg/m2 BSA (Body Surface Area) 1.74 m2 01/10/2015 BP Systolic Sitting Left Arm 142 mmHg BP Diastolic Sitting Left Arm 79 mmHg Body Temperature 97.0 F Heart Rate 61 /min Respiratory Rate 16 /min Weight 146.00 lb O2 % BldC Oximetry 98 % 01/03/2015 BP Systolic 138 mmHg BP Diastolic 78 mmHg Body Temperature 97.3 F Heart Rate 71 /min Height 63 inches 5'3" Weight 149.00 lb BMI (Body Mass Index) 26.4 kg/m2 BSA (Body Surface Area) 1.71 m2 10/18/2014 BP Systolic Sitting Right Arm 154 mmHg white coat BP Diastolic Sitting Right Arm 107 mmHg white coat Heart Rate 62 /min Respiratory Rate 16 /min Height 63 inches 5'3" Weight 150.00 lb BMI (Body Mass Index) 26.6 kg/m2 BSA (Body Surface Area) 1.71 m2 09/26/2014 BP Systolic 132 mmHg BP Diastolic 72 mmHg Height 63 inches 5'3" Weight 147.00 lb 03/23/2014 BP Systolic 132 mmHg BP Diastolic 72 mmHg Height 63 inches 5'3" Weight 145.00 lb 03/15/2014 BP Systolic 140 mmHg BP Diastolic 94 mmHg Heart Rate 72 /min Height 63 inches 5'3" Weight 145.00 lb 11/30/2013 Height 63 inches 5'3" 11/30/2013 BP Systolic 150 mmHg BP Diastolic 78 mmHg Height 63 inches 5'3" Weight 148.00 lb 09/11/2013 BP Systolic 154 mmHg BP Diastolic 84 mmHg Height 63 inches 5'3" Weight 145.00 lb 08/04/2013 BP Systolic 128 mmHg BP Diastolic 74 mmHg Body Temperature 98.5 F Height 63 inches 5'3" Weight 144.00 lb 07/14/2013 BP Systolic 136 mmHg BP Diastolic 72 mmHg Height 63 inches 5'3" Weight 148.00 lb 02/01/2013 BP Systolic 134 mmHg BP Diastolic 72 mmHg Height 63 inches 5'3" Weight 137.00 lb 01/17/2013 BP Systolic 134 mmHg BP Diastolic 72 mmHg Height 63 inches 5'3" Weight 139.00 lb 09/09/2012 BP Systolic 132 mmHg BP Diastolic 68 mmHg Height 63 inches 5'3" Weight 139.00 lb 07/25/2012 BP Systolic 142 mmHg BP Diastolic 80 mmHg Body Temperature 97.8 F Height 63 inches 5'3" Weight 139.00 lb 07/15/2012 BP Systolic 132 mmHg BP Diastolic 74 mmHg Height 63 inches 5'3" Weight 140.00 lb 06/30/2012 BP Systolic 128 mmHg BP Diastolic 76 mmHg Body Temperature 98.5 F Height 63 inches 5'3" Weight 139.00 lb 06/22/2012 BP Systolic 138 mmHg BP Diastolic 78 mmHg Body Temperature 97.2 F Weight 138.00 lb 06/10/2012 BP Systolic 158 mmHg BP Diastolic 84 mmHg Weight 143.00 lb 02/02/2012 Height 63 inches 5'3" Weight 140.00 lb 01/28/2012 BP Systolic 142 mmHg BP Diastolic 78 mmHg Weight 142.00 lb 09/28/2011 BP Systolic 132 mmHg BP Diastolic 72 mmHg Height 63 inches 5'3" Weight 144.00 lb 08/27/2011 BP Systolic 132 mmHg BP Diastolic 74 mmHg Height 63 inches 5'3" Weight 144.00 lb 04/21/2010 Height 63.5 inches 5'3.50" Weight 135.00 lb 09/19/2009 Height 64 inches 5'4" Weight 142.00 lb Results Test Date Test Result H/L Range Note Laboratory test finding 05/19/2018 Rapid Strep Molecular Negative Negative 1 Basic Metabolic Panel 02/25/2018 Glucose 125 mg/dL High 74-106 2 BUN 21 mg/dL High 7-18 2 Creatinine 1.1 mg/dL 0.6-1.3 2 Glom Filtration Rate, Estimate 53 mL/min >60 2 If >60 mL/min >60 2, 3 BUN/Creat 19.0 ratio 2 Sodium 143 mmol/L 136-145 2 Potassium 3.8 mmol/L 3.5-5.1 2 Chloride 107 mmol/L 98-107 2 Carbon Dioxide 30 mmol/L 21-32 2 Anion Gap 6 mEq/L Low 8-16 2 Calcium 9.4 mg/dL 8.5-10.1 2 LDL Cholesterol Profile 02/25/2018 Cholesterol 199 mg/dL <200 2, 4 Triglycerides 201 mg/dL High <150 2, 5 HDL Cholesterol 52 mg/dL >40 2, 6 LDL-Cholesterol 107 mg/dL < 100 2, 7 Homocyst(E)Ine, P/S 02/25/2018 Homocyst(e)ine, P/S 8.9 umol/L 0.0-15.0 2 , 8 Liver Function Tests 02/25/2018 Total Protein 7.9 g/dL 6.4-8.2 2 Albumin 4.2 g/dL 3.4-5.0 2 Globulin 3.7 g/dL 1.9-4.3 2 Alb/Glob 1.1 ratio 2 Bilirubin,Total 0.6 mg/dL 0.2-1.0 2 Bilirubin,Direct 0.2 mg/dL 0.0-0.2 2 Bilirubin,Indirect 0.4 mg/dL 0.0-0.9 2 Sgot/Ast 37 U/L 15-37 2 SGPT/Alt 49 U/L 12-78 2 Alkaline Phosphatase 116 U/L 45-117 2 Laboratory test 02/25/2018 Vitamin D,25-Hydroxy 42.5 ng/mL 30.0-100.0 2 , 9 finding LDL Cholesterol 10/05/2017 Cholesterol 171 mg/dL <200 10, 11 Profile Triglycerides 144 mg/dL <150 10, 12 HDL Cholesterol 57 mg/dL >40 10, 13 LDL-Cholesterol 85 mg/dL < 100 10, 14 CBS W/Automated Diff 10/05/2017 White Blood Count 6.5 K/uL 3.1-10.7 10 Red Blood Count 4.68 M/uL 3.90-5.40 10 Hemoglobin 14.0 gm/dL 11.6-15.8 10 Hematocrit 40.2 % 36.0-46.1 10 Mean Cell Volume 85.9 fl 80.9-99.0 10 Mean Corpuscular HGB 29.9 pg 25.9-32.7 10 Mean Corpuscular HGB Conc 34.8 g/dL High 30.8-34.3 10 Platelet Count 323 K/uL 155-360 10 Red Cell Distri Width SD 43.3 fl 3-47 10 Red Cell Distri Width %CV 14.1 % 11.7-14.4 10 Mean Platelet Volume 9.1 fL 8.9-12.4 10 Neut% 49.5 % 40.4-72.8 10 Lymph % 35.3 % 20.0-42.0 10 [place] % 10.9 % 4.3-13.2 10 Eo% 3.7 % 0.0-6.6 10 Bas% 0.6 % 0.0-1.1 10 Neut# 3.22 K/uL 1.8-7.0 10 Lymph # 2.30 K/uL 1.0-4.0 10 [place] # 0.71 K/uL 0.3-0.9 10 Eos # 0.24 K/uL 0.0-0.5 10 Baso # 0.04 K/uL 0.0-0.1 10 Comprehensive Metabolic Panel 10/05/2017 Glucose 128 mg/dL High 74-106 10 BUN 22 mg/dL High 7-18 10 Creatinine 1.0 mg/dL 0.6-1.3 10 Glom Filtration Rate, Estimate 60 mL/min >60 10 If >60 mL/min >60 10, 15 BUN/Creat 22.0 ratio 10 Sodium 142 mmol/L 136-145 10 Potassium 3.6 mmol/L 3.5-5.1 10 Chloride 107 mmol/L 98-107 10 Carbon Dioxide 28 mmol/L 21-32 10 Anion Gap 7 mEq/L Low 8-16 10 Calcium 9.1 mg/dL 8.5-10.1 10 Total Protein 7.8 g/dL 6.4-8.2 10 Albumin 3.8 g/dL 3.4-5.0 10 Globulin 4.0 g/dL 1.9-4.3 10 Alb/Glob 1.0 ratio 10 Bilirubin,Total 0.5 mg/dL 0.2-1.0 10 Sgot/Ast 22 U/L 15-37 10 SGPT/Alt 35 U/L 12-78 10 Alkaline Phosphatase 108 U/L 45-117 10 LDL Cholesterol Profile 09/15/2016 Cholesterol 291 mg/dL High <200 16, 17 Triglycerides 237 mg/dL High <150 16, 18 HDL Cholesterol 54 mg/dL >40 16, 19 LDL-Cholesterol 190 mg/dL < 100 16, 20 Basic Metabolic Panel 09/15/2016 Glucose 95 mg/dL 74-106 16 BUN 20 mg/dL High 7-18 16 Creatinine 1.1 mg/dL 0.6-1.3 16 Glom Filtration Rate, Estimate 53 mL/min >60 16 If >60 mL/min >60 16, 21 BUN/Creat 18.1 ratio 16 Sodium 143 mmol/L 136-145 16 Potassium 4.0 mmol/L 3.5-5.1 16 Chloride 106 mmol/L 98-107 16 Carbon Dioxide 27 mmol/L 21-32 16 Anion Gap 10 mEq/L 8-16 16 Calcium 9.0 mg/dL 8.5-10.1 16 Laboratory test finding 06/28/2016 Urine Culture SEE RESULT BELOW 22, 23 LDL Cholesterol Profile 03/12/2016 Cholesterol 185 mg/dL <200 24, 25 Triglycerides 100 mg/dL <150 24, 26 HDL Cholesterol 59 mg/dL >40 24, 27 LDL-Cholesterol 106 mg/dL < 100 24, 28 Is Patient Fasting? Unknown 24 Liver Function Tests 03/12/2016 Total Protein 7.7 g/dL 6.4-8.2 24 Albumin 4.2 g/dL 3.4-5.0 24 Globulin 3.5 g/dL 1.9-4.3 24 Alb/Glob 1.2 ratio 24 Bilirubin,Total 0.7 mg/dL 0.2-1.0 24 Bilirubin,Direct 0.2 mg/dL 0.0-0.2 24 Bilirubin,Indirect 0.5 mg/dL 0.0-0.9 24 Sgot/Ast 23 U/L 15-37 24 SGPT/Alt 28 U/L 12-78 24 Alkaline Phosphatase 99 U/L 45-117 24 Is Patient Fasting? Unknown 24 CK 03/12/2016 CK 124 U/L 26-192 24 Is Patient Fasting? Unknown 24 CBS W/Automated Diff 03/12/2016 White Blood Count 5.2 K/uL 3.1-10.7 24 Red Blood Count 5.07 M/uL 3.90-5.40 24 Hemoglobin 14.9 gm/dL 11.6-15.8 24 Hematocrit 43.8 % 36.0-46.1 24 Mean Cell Volume 86.4 fl 80.9-99.0 24 Mean Corpuscular HGB 29.4 pg 25.9-32.7 24 Mean Corpuscular HGB Conc 34.0 g/dL 30.8-34.3 24 Platelet Count 320 K/uL 155-360 24 Red Cell Distri Width SD 43.4 fl 3-47 24 Red Cell Distri Width %CV 14.1 % 11.7-14.4 24 Mean Platelet Volume 9.8 fL 8.9-12.4 24 Neut% 51.7 % 40.4-72.8 24 Lymph % 34.2 % 17.0-46.1 24 [place] % 11.2 % 4.3-13.2 24 Eo% 2.1 % 0.0-6.6 24 Bas% 0.8 % 0.0-1.1 24 Neut# 2.67 K/uL 1.8-7.0 24 Lymph # 1.77 K/uL Low 1.8-7.0 24 [place] # 0.58 K/uL 0.3-0.9 24 Eos # 0.11 K/uL 0.0-0.5 24 Baso # 0.04 K/uL 0.0-0.1 24 Comprehensive Metabolic Panel 03/12/2016 Glucose 105 mg/dL 74-106 24 BUN 22 mg/dL High 7-18 24 Creatinine 1.1 mg/dL 0.6-1.3 24 Glom Filtration Rate, Estimate 54 mL/min >60 24 If >60 mL/min >60 24, 29 BUN/Creat 20.0 ratio 24 Sodium 140 mmol/L 136-145 24 Potassium 4.1 mmol/L 3.5-5.1 24 Chloride 106 mmol/L 98-107 24 Carbon Dioxide 29 mmol/L 21-32 24 Anion Gap 5 mEq/L Low 8-16 24 Calcium 9.2 mg/dL 8.5-10.1 24 Is Patient Fasting? Unknown 24 Lipid Panel 09/12/2015 Cholesterol 169 mg/dL <200 30 Triglycerides 106 mg/dL <150 31 HDL Cholesterol 60 mg/dL >40 32 LDL-Cholesterol 88 mg/dL < 100 33 Liver - Hepatic Panel 09/12/2015 Total Protein 7.5 g/dL 6.4-8.2 Albumin 3.9 g/dL 3.4-5.0 Globulin 3.6 g/dL 1.9-4.3 Alb/Glob 1.1 ratio Bilirubin,Total 0.7 mg/dL 0.2-1.0 Bilirubin,Direct 0.2 mg/dL 0.0-0.2 Bilirubin,Indirect 0.5 mg/dL 0.0-0.9 Sgot/Ast 23 U/L 15-37 SGPT/Alt 36 U/L 12-78 Alkaline Phosphatase 93 U/L 45-117 CBC W/Diff & PLT 09/12/2015 White Blood Count 5.2 K/uL 3.1-10.7 Red Blood Count 4.81 M/uL 3.90-5.40 Hemoglobin 14.1 gm/dL 11.6-15.8 Hematocrit 41.3 % 36.0-46.1 Mean Cell Volume 85.9 fl 80.9-99.0 Mean Corpuscular HGB 29.3 pg 25.9-32.7 Mean Corpuscular HGB Conc 34.1 g/dL 30.8-34.3 Platelet Count 327 K/uL 155-360 Red Cell Distri Width SD 47.0 fl 3-47 Red Cell Distri Width %CV 15.3 % High 11.7-14.4 Mean Platelet Volume 9.1 fL 8.9-12.4 Neut% 53.6 % 40.4-72.8 Lymph % 32.8 % 17.0-46.1 [place] % 8.4 % 4.3-13.2 Eo% 4.4 % 0.0-6.6 Bas% 0.8 % 0.0-1.1 Neut# 2.79 K/uL 1.8-7.0 Lymph # 1.71 K/uL Low 1.8-7.0 [place] # 0.44 K/uL 0.3-0.9 Eos # 0.23 K/uL 0.0-0.5 Baso # 0.04 K/uL 0.0-0.1 Renal Panel 09/12/2015 Glucose 96 mg/dL 74-106 BUN 18 mg/dL 7-18 Creatinine 1.0 mg/dL 0.6-1.3 Glom Filtration Rate, Estimate 60 mL/min >60 If >60 mL/min >60 34 BUN/Creat 18.0 ratio Sodium 142 mmol/L 136-145 Potassium 4.1 mmol/L 3.5-5.1 Chloride 108 mmol/L High 98-107 Carbon Dioxide 27 mmol/L 21-32 Anion Gap 7 mEq/L Low 8-16 Calcium 8.2 mg/dL Low 8.5-10.1 Phosphorous 3.2 mg/dL 2.5-4.0 Albumin 3.9 g/dL 3.4-5.0 Laboratory test 08/08/2015 Rapid Strep Negative Negative 35 finding Molecular Laboratory test 08/08/2015 Throat Beta Strep SEE RESULT BELOW 36 finding Culture LDL Cholesterol 02/06/2015 Cholesterol 206 mg/dL < 200 37 Profile Triglycerides 178 mg/dL < 150 38 HDL Cholesterol 46 mg/dL > 40 39 LDL-Cholesterol 124 mg/dL < 100 40 Liver Function Tests 02/06/2015 Total Protein 7.9 g/dL 6.4-8.2 Albumin 4.0 g/dL 3.4-5.0 Globulin 3.9 g/dL 1.9-4.3 Alb/Glob 1.0 ratio Bilirubin,Total 0.5 mg/dL 0.2-1.0 Bilirubin,Direct < 0.1 mg/dL 0.0-0.2 Bilirubin,Indirect 0.4 mg/dL 0.0-0.9 Sgot/Ast 27 U/L 15-37 SGPT/Alt 39 U/L 12-78 Alkaline Phosphatase 101 U/L 45-117 Comprehensive Metabolic Panel 02/06/2015 Glucose 104 mg/dL 74-106 BUN 21 mg/dL High 7-18 Creatinine 1.1 mg/dL 0.6-1.3 Glom Filtration Rate, Estimate 54 mL/min >60 If >60 mL/min >60 41 BUN/Creat 19.0 ratio Sodium 143 mmol/L 136-145 Potassium 3.9 mmol/L 3.5-5.1 Chloride 107 mmol/L 98-107 Carbon Dioxide 30 mmol/L 21-32 Anion Gap 6 mEq/L Low 8-16 Calcium 9.1 mg/dL 8.5-10.1 Total Protein 7.9 g/dL 6.4-8.2 Albumin 4.0 g/dL 3.4-5.0 Globulin 3.9 g/dL 1.9-4.3 Alb/Glob 1.0 ratio Bilirubin,Total 0.5 mg/dL 0.2-1.0 Sgot/Ast 27 U/L 15-37 SGPT/Alt 39 U/L 12-78 Alkaline Phosphatase 101 U/L 45-117 CBC W/Automated Diff 02/06/2015 White Blood Count 6.5 K/uL 3.1-10.7 Red Blood Count 4.71 M/uL 3.90-5.40 Hemoglobin 13.9 gm/dL 11.6-15.8 Hematocrit 41.0 % 36.0-46.1 Mean Cell Volume 87.0 fl 80.9-99.0 Mean Corpuscular HGB 29.5 pg 25.9-32.7 Mean Corpuscular HGB Conc 33.9 g/dL 30.8-34.3 Platelet Count 322 K/uL 155-360 Red Cell Distri Width SD 46.2 fl 3-47 Red Cell Distri Width %CV 14.8 % High 11.7-14.4 Mean Platelet Volume 8.8 fL Low 8.9-12.4 Neut% 53.0 % 40.4-72.8 Lymph % 30.1 % 17.0-46.1 [place] % 12.6 % 4.3-13.2 Eo% 3.7 % 0.0-6.6 Bas% 0.6 % 0.0-1.1 Neut# 3.45 K/uL 1.0-7.0 Lymph # 1.96 K/uL 1.8-7.0 [place] # 0.82 K/uL 0.3-0.9 Eos # 0.24 K/uL 0.0-0.5 Baso # 0.04 K/uL 0.0-0.1 Laboratory test finding 09/26/2014 CK 102 U/L 26-192 Basic Metabolic Panel 09/26/2014 Anion Gap 8 mEq/L 8-16 BUN 17 mg/dL 7-18 BUN/Creat 17.0 ratio Calcium 9.0 mg/dL 8.5-10.1 Carbon Dioxide 29 mmol/L 21-32 Chloride 107 mmol/L 98-107 Creatinine 1.0 mg/dL 0.6-1.3 Glom Filtration Rate, Estimate 60 mL/min >60 Glucose 104 mg/dL 74-106 If >60 mL/min >60 42 Potassium 3.8 mmol/L 3.5-5.1 Sodium 144 mmol/L 136-145 LDL Cholesterol Profile 09/26/2014 Cholesterol 182 mg/dL < 200 43 HDL Cholesterol 46 mg/dL > 40 44 LDL-Cholesterol 86 mg/dL < 100 45 Triglycerides 249 mg/dL < 150 46 Liver Function Tests 09/26/2014 Alb/Glob 1.3 ratio Albumin 4.1 g/dL 3.4-5.0 Alkaline Phosphatase 125 U/L High 45-117 Bilirubin,Direct 0.1 mg/dL 0.0-0.2 Bilirubin,Indirect 0.4 mg/dL 0.0-0.9 Bilirubin,Total 0.5 mg/dL 0.2-1.0 Globulin 3.1 g/dL 1.9-4.3 SGPT/Alt 34 U/L 12-78 Sgot/Ast 27 U/L 15-37 Total Protein 7.2 g/dL 6.4-8.2 Laboratory test finding 03/15/2014 Antinuclear Antibodies, Ifa See patterns . 47 C-Reactive Protein,Quant < 2.9 mg/L 0.0-4.9 CK 120 U/L 26-190 Calcium 9.0 mg/dL 8.5-10.1 Homogeneous Pattern 1:160 High . Note See Note 48 Rheumatoid Factor Screen Negative Negative Sedimentation Rate 15 mm/hr 0-30 Thyroid Stim Hormone 2.82 uIU/mL 0.49-4.67 Uric Acid 4.2 mg/dL 2.1-7.4 CBS W/Automated Diff 03/15/2014 Bas% 0.6 % 0.0-1.1 Baso # 0.04 K/uL 0.0-0.1 Eo% 3.2 % 0.0-6.6 Eos # 0.20 K/uL 0.0-0.5 Hematocrit 38.6 % 36.0-46.1 Hemoglobin 13.2 gm/dL 11.6-15.8 Lymph # 1.96 K/uL 0.8-3.4 Lymph % 31.0 % 17.0-46.1 Mean Cell Volume 88.5 fl 80.9-99.0 Mean Corpuscular HGB 30.3 pg 25.9-32.7 Mean Corpuscular HGB Conc 34.2 g/dL 30.8-34.3 Mean Platelet Volume 9.9 fL 8.9-12.4 [place] # 0.61 K/uL 0.3-0.9 [place] % 9.6 % 4.3-13.2 Neut# 3.52 K/uL 1.0-7.0 Neut% 55.6 % 40.4-72.8 Platelet Count 312 K/uL 155-360 Red Blood Count 4.36 M/uL 3.90-5.40 Red Cell Distri Width %CV 14.1 % 11.7-14.4 Red Cell Distri Width SD 44.6 fl 3-47 White Blood Count 6.3 K/uL 3.1-10.7 LDL Cholesterol Profile 03/15/2014 Cholesterol 178 mg/dL 120-200 HDL Cholesterol 47 mg/dL 29-83 LDL-Cholesterol 85 mg/dL 62-185 Triglycerides 230 mg/dL 16-231 Liver Function Tests 03/15/2014 Alb/Glob 1.1 ratio Albumin 3.9 g/dL 3.5-5.0 Alkaline Phosphatase 109 U/L 50-136 Bilirubin,Direct 0.1 mg/dL 0.1-0.4 Bilirubin,Indirect 0.3 mg/dL 0.0-0.9 Bilirubin,Total 0.4 mg/dL 0.2-1.2 Globulin 3.6 g/dL 1.9-4.3 SGPT/Alt 37 U/L 30-65 Sgot/Ast 26 U/L 16-40 Total Protein 7.5 g/dL 6.3-8.0 Laboratory test finding 11/30/2013 Urine Culture See Note 49 Laboratory test finding 11/30/2013 Cytology Pap See Note 50 Laboratory test finding 07/28/2013 Creatine Kinase 90 U/L 0-200 Lipid Profile 07/28/2013 Cholesterol 203 mg/dL High Less than 200 (Trig/Chol/HDL) Cholesterol/HDL Ratio 3.9 Average 1-4.44 HDL Cholesterol 52 mg/dL 40-60 51 LDL Cholesterol 114.8 High Less Than 100 52 Triglycerides 181 mg/dL 40-200 Liver Function Panel 07/28/2013 Albumin 4.3 g/dL 3.6-5.4 Albumin/Globulin Ratio 2.0 1-3 Alkaline Phosphatase 94 U/L 30-110 Alt 33 U/L 14-54 Ast 32 U/L 12-42 Direct Bilirubin 0.1 mg/dL 0.1-0.5 Globulin 2.2 g/dL 2-4 Indirect Bilirubin 0.8 mg/dL 0.3-1.0 Total Bilirubin 0.9 mg/dL 0.4-1.5 Total Protein 6.5 g/dL 6.2-8.1 Laboratory test finding 01/25/2013 Hemoglobin A1c 5.9 % Less than 6.0 53 TSH (Thyroid Stimulating Horm) 3.83 miu/mL 0.34-5.60 Basic Metabolic Panel 01/25/2013 Anion Gap 7.0 mmol/L 2-11 BUN/Creatinine Ratio 21.1 High 8-20 Blood Urea Nitrogen 19 mg/dL 6-24 Calcium 9.4 mg/dL 8.1-9.9 Chloride 105 mmol/L 101-111 Co2 Carbon Dioxide 26.0 mmol/L 22-32 Creatinine 0.90 mg/dL 0.50-1.40 Egfr 82.7 >60 54 Egfr Non- 64.3 >60 Glucose 104 mg/dL High 70-100 Potassium 4.0 mmol/L 3.5-5.0 Sodium 138 mmol/L 133-145 CK Isoenzymes 01/25/2013 CK Isoenzymes See Comment 55 Creatine Kinase 98 Lipid Profile (Trig/Chol/HDL) 01/25/2013 Cholesterol 175 mg/dL Less than 200 Cholesterol/HDL Ratio 2.9 Average 1-4.44 HDL Cholesterol 61 mg/dL High 40-60 56 LDL Cholesterol 83.6 Less Than 100 57 Triglycerides 152 mg/dL 40-200 Liver Function Panel 01/25/2013 Albumin 4.1 g/dL 3.6-5.4 Albumin/Globulin Ratio 1.6 1-3 Alkaline Phosphatase 57 U/L 30-110 Alt 31 U/L 14-54 Ast 30 U/L 12-42 Direct Bilirubin 0.1 mg/dL 0.1-0.5 Globulin 2.6 g/dL 2-4 Indirect Bilirubin 0.7 mg/dL 0.3-1.0 Total Bilirubin 0.8 mg/dL 0.4-1.5 Total Protein 6.7 g/dL 6.2-8.1 Vitamin D, 25 Hydroxy 01/25/2013 25-Hydroxy Vitamin D Total 43 ng/mL 58 25-Hydroxy Vitamin D2 <4.0 ng/mL 25-Hydroxy Vitamin D3 43 ng/mL Laboratory test finding 01/13/2013 Genital Culture (See Note) 59 Affirm Vaginal Dna Probe 01/13/2013 Affirm Vaginal Dna (See Note) 60 Probe GC/Chlamydia Amplified Rna 01/13/2013 GC/Chlamydia Rna (See Note) 61 Urine Culture And 01/13/2013 Urine Culture (See Note) 62 Sensitivities Urine Culture And 12/05/2012 Urine Culture (See Note) 63 Sensitivities Affirm Vaginal Dna Probe 10/19/2012 Affirm Vaginal Dna (See Note) 64 Probe GC/Chlamydia Amplified Rna 10/19/2012 GC/Chlamydia Rna (See Note) 65 Laboratory test finding 08/05/2012 Creatine Kinase 78 U/L 0-200 Hemoglobin A1c 6.2 % High Less than 6.0 66 CBC Auto Diff 08/05/2012 Abs Basophils 0 10^3/uL 0-0.2 Abs Eosinophils 0.2 10^3/uL 0-0.6 Abs Lymphocytes 2.5 10^3/uL 1.0-4.8 Abs Monocytes 0.6 10^3/uL 0-0.8 Abs Neutrophils 3.2 10^3/uL 1.5-7.7 Abs Nucleated RBC 0.01 10^3/uL Basophil % 0.6 % 0-2 Eosinophil % 3.4 % 0-6 Granulocyte % 49.0 % 38-83 Hematocrit 42 % 35-47 Hemoglobin 14.2 g/dL 12.0-16.0 Lymphocyte % 38.0 % 25-47 Mean Corpuscular HGB Conc 34 g/dL 31-36 Mean Corpuscular Hemoglobin 31 pg 27-31 Mean Corpuscular Volume 90 fL 80-97 Mean Platelet Volume 8 um3 7.4-10.4 Monocyte % 9.0 % 1-9 Nucleated Red Blood Cells % 0.1 Platelet Count 310 10^3/uL 150-450 Red Blood Count 4.64 10^6/uL 4.0-5.4 Red Cell Distribution Width 14 % 10.5-15 White Blood Count 6.5 10^3/uL 4.8-10.8 Lipid Profile (Trig/Chol/HDL) 08/05/2012 Cholesterol 188 mg/dL Less than 200 Cholesterol/HDL Ratio 3.2 Average 1-4.44 HDL Cholesterol 58 mg/dL 40-60 67 LDL Cholesterol 101.6 mg/dL High Less Than 100 68 Triglycerides 142 mg/dL 40-200 Renal Function Panel 08/05/2012 Albumin 4.1 g/dL 3.6-5.4 Anion Gap 7.0 mmol/L 2-11 BUN/Creatinine Ratio 16.4 8-20 Blood Urea Nitrogen 18 mg/dL 6-24 Calcium 9.4 mg/dL 8.1-9.9 Chloride 106 mmol/L 101-111 Co2 Carbon Dioxide 27.0 mmol/L 22-32 Creatinine 1.10 mg/dL 0.50-1.40 Egfr 65.6 >60 69 Egfr Non- 51.0 >60 Glucose 102 mg/dL High 70-100 Phosphorus 4.1 mg/dL 2.4-4.7 Potassium 4.0 mmol/L 3.5-5.0 Sodium 140 mmol/L 133-145 Liver Function Panel 08/05/2012 Albumin/Globulin Ratio 1.7 1-3 Alkaline Phosphatase 73 U/L 30-110 Alt 27 U/L 14-54 Ast 24 U/L 12-42 Direct Bilirubin 0.1 mg/dL 0.1-0.5 Globulin 2.4 g/dL 2-4 Indirect Bilirubin 0.9 mg/dL 0.3-1.0 Total Bilirubin 1.0 mg/dL 0.4-1.5 Total Protein 6.5 g/dL 6.2-8.1 Urine Culture And 06/04/2012 Urine Culture (See Note) 70 Sensitivities Affirm Vaginal Dna Probe 06/04/2012 Affirm Vaginal Dna (See Note) 71 Probe Chlamydia Trachomatis Rna 05/09/2012 Chlamydia Trachomatis (See Note) 72 Rna Affirm Vaginal Dna Probe 05/09/2012 Affirm Vaginal Dna (See Note) 73 Probe Urine Culture & Sensitivi 03/13/2012 M 74 <See Note> Laboratory test finding 03/13/2012 M 75 <See Note> Laboratory test finding 01/28/2012 CPK (Creatine Kinase) 77 U/L 0-170 Hemoglobin A1c 6.2 % High Less Than 6.0 76 Basic Metabolic Panel 01/28/2012 Anion Gap 9.0 mmol/L 2-11 77 BUN 15 mg/dL 6-24 BUN/Creatinine Ratio 16.7 8-20 Calcium 9.3 mg/dL 8.1-9.9 Chloride 103 mmol/L 101-111 Co2 (Carbon Dioxide) 26.0 mmol/L 22-32 Creatinine 0.9 mg/dL 0.50-1.40 Glucose 86 mg/dL 70-100 One Over Creatinine 1.11 Potassium 4.0 mmol/L 3.5-5.0 Sodium 138 mmol/L 135-145 eGFR 83.0 > 60 78 eGFR Non- 64.5 > 60 Lipid Profile (Trig/Chol/HDL) 01/28/2012 Cholesterol 210 mg/dL High Less Than 200 79 Cholesterol/HDL Ratio 3.56 AVERAGE 1-4.44 High Density Lipoprotein 59 mg/dL 40-60 80 Low Density Lipoprotein 117 mg/dL High Less Than 100 81 Triglyceride 172 mg/dL 40-200 Liver Function Panel 01/28/2012 Albumin 4.1 GM/DL 3.6-5.4 Albumin/Globulin Ratio 2.0 1-3 Alkaline Phosphatase 62 U/L 30-110 Alt (SGPT) 18 U/L 14-54 Ast (Sgot) 18 U/L 12-42 Bilirubin Direct 0.0 mg/dL Low 0.1-0.5 Bilirubin Total 0.9 mg/dL 0.4-1.5 82 Globulin 2.1 GM/DL 2-4 Indirect Bilirubin (See Note) mg/dL 0.3-1.0 83 Total Protein 6.2 GM/DL 6.2-8.1 Laboratory test finding 08/27/2011 Cytology Pap See Note 84 1 Urban Anthropologist: [id number] I10 E78.5 Z85.3 3 Note: Persistent reduction for 3 months or more in an eGFR <60 mL/min/1.73 m2 defines CKD. Patients with eGFR values >/=60 mL/min/1.73 m2 may also have CKD if evidence of persistent proteinuria is present. The original MDRD equation for estimated GFR is not valid for patients less than 18 years of age. Additional information may be found at www.kdoqi.org. 4 Reference Guidelines*: Desirable: ........... < 200 mg/dL Borderline High: ..... 200-239 mg/dL High: ................ >=240 mg/dL * The National Cholesterol Education Program (NCEP) 5 Reference Guidelines*: Normal: ............. < 150 mg/dL Borderline High: .... 150-199 mg/dL High: ............... 200-499 mg/dL Very High: .......... > 500 mg/dL * Source: National Cholesterol Education Program (NCEP) 6 Reference Guidelines*: Low HDL: ..... < 40 mg/dL Normal: ..... 40-60 mg/dL Desirable: ... > 60 mg/dL *The National Cholesterol Education Program(NCEP) 7 Reference Guidelines*: Optimal:........... <100 mg/dL Near Optimal....... 100-129 mg/dL Borderline High.... 130-159 mg/dL High............... 160-189 mg/dL Very High.......... >=190 mg/dL * Source: National Cholesterol Education Program (NCEP) 8 Performed at: [facility] [id number] Insurance Loss Assessor: Arielle Tejada MD, Phone: [phone] Vitamin D deficiency has been defined by the [place] of Medicine and an Endocrine Society practice guideline as a level of serum 25-OH vitamin D less than 20 ng/mL (1,2). The Endocrine Society went on to further define vitamin D insufficiency as a level between 21 and 29 ng/mL (2). 1. IOM ([place] of Medicine). 2010. Dietary reference intakes for calcium and D. [place]: The National Academies Press. 2. Maryanne MF, Aixa NC, Lyle-Sina LANGFORD, et al. Evaluation, treatment, and prevention of vitamin D deficiency: an Endocrine Society clinical practice guideline. JCEM. 2010; 96(7):1911-30. Performed at: [facility] [id number] Insurance Loss Assessor: Arielle Tejada MD, Phone: [phone] 10 E78.5 K21.0 I10 11 Reference Guidelines*: Desirable: ........... < 200 mg/dL Borderline High: ..... 200-239 mg/dL High: ................ >=240 mg/dL * The National Cholesterol Education Program (NCEP) 12 Reference Guidelines*: Normal: ............. < 150 mg/dL Borderline High: .... 150-199 mg/dL High: ............... 200-499 mg/dL Very High: .......... > 500 mg/dL * Source: National Cholesterol Education Program (NCEP) 13 Reference Guidelines*: Low HDL: ..... < 40 mg/dL Normal: ..... 40-60 mg/dL Desirable: ... > 60 mg/dL *The National Cholesterol Education Program(NCEP) 14 Reference Guidelines*: Optimal:........... <100 mg/dL Near Optimal....... 100-129 mg/dL Borderline High.... 130-159 mg/dL High............... 160-189 mg/dL Very High.......... >=190 mg/dL * Source: National Cholesterol Education Program (NCEP) 15 Note: Persistent reduction for 3 months or more in an eGFR <60 mL/min/1.73 m2 defines CKD. Patients with eGFR values >/=60 mL/min/1.73 m2 may also have CKD if evidence of persistent proteinuria is present. The original MDRD equation for estimated GFR is not valid for patients less than 18 years of age. Additional information may be found at www.kdoqi.org. 16 E78.5 I10 17 Reference Guidelines*: Desirable: ........... < 200 mg/dL Borderline High: ..... 200-239 mg/dL High: ................ >=240 mg/dL * The National Cholesterol Education Program (NCEP) 18 Reference Guidelines*: Normal: ............. < 150 mg/dL Borderline High: .... 150-199 mg/dL High: ............... 200-499 mg/dL Very High: .......... > 500 mg/dL * Source: National Cholesterol Education Program (NCEP) 19 Reference Guidelines*: Low HDL: ..... < 40 mg/dL Normal: ..... 40-60 mg/dL Desirable: ... > 60 mg/dL *The National Cholesterol Education Program(NCEP) 20 Reference Guidelines*: Optimal:........... <100 mg/dL Near Optimal....... 100-129 mg/dL Borderline High.... 130-159 mg/dL High............... 160-189 mg/dL Very High.......... >=190 mg/dL * Source: National Cholesterol Education Program (NCEP) 21 Note: Persistent reduction for 3 months or more in an eGFR <60 mL/min/1.73 m2 defines CKD. Patients with eGFR values >/=60 mL/min/1.73 m2 may also have CKD if evidence of persistent proteinuria is present. The original MDRD equation for estimated GFR is not valid for patients less than 18 years of age. Additional information may be found at www.kdoqi.org. 22 [id number] SEE RESULT BELOW Name: CHANDAN SIMS : [address]: Chandan Quintanilla MD Acct: [id number] Unit: [id number] AGE: 61 Location: [facility] Re06/28/16 SEX: F Status: DEP ER SPEC: [id number] KAVIN: 06/28/[address]: Chandan Quintanilla MD REQ: [id number] RECD: 06/28/16 STATUS: KEM ALFORD DR: Karol SENIOR _ SOURCE: URINE SPDESC: ORDERED: Urine Culture COMMENTS: [id number] Procedure Result Reported Site Urine Culture Final 06/29/16- 1247 ML Organism 1 STREP GROUP B [place] Count 10-25,000 (Moderate) CFU/ML Organism 2 NORMAL ANGEL [place] Count 50-75,000 (Many) CFU/ML Susceptibility testing of penicillins and other B-lactams approved by FDA for treatment of Streptococcus pyogenes (Group A Strep) and Streptococcus agalactiae (Group B Strep) is not necessary for clinical purposes and need not be done routinely, since as with vancomycin, resistant strains have not been recognized. (CLSI F451-G15;p.66) Positive isolates will be saved for one week. Please call the Microbiology Laboratory if further susceptibility testing is needed. * ML - MAIN LAB ([facility]) . END OF REPORT * ML=Testing performed at Main Lab DEPARTMENT OF PATHOLOGY, [address] [place] [address] Romario Alberto M.D. Director [facility] # [id number] 24 E78.5 M06.4 I10 25 Reference Guidelines*: Desirable: ........... < 200 mg/dL Borderline High: ..... 200-239 mg/dL High: ................ >=240 mg/dL * The National Cholesterol Education Program (NCEP) 26 Reference Guidelines*: Normal: ............. < 150 mg/dL Borderline High: .... 150-199 mg/dL High: ............... 200-499 mg/dL Very High: .......... > 500 mg/dL * Source: National Cholesterol Education Program (NCEP) 27 Reference Guidelines*: Low HDL: ..... < 40 mg/dL Normal: ..... 40-60 mg/dL Desirable: ... > 60 mg/dL *The National Cholesterol Education Program(NCEP) 28 Reference Guidelines*: Optimal:........... <100 mg/dL Near Optimal....... 100-129 mg/dL Borderline High.... 130-159 mg/dL High............... 160-189 mg/dL Very High.......... >=190 mg/dL * Source: National Cholesterol Education Program (NCEP) 29 Note: Persistent reduction for 3 months or more in an eGFR <60 mL/min/1.73 m2 defines CKD. Patients with eGFR values >/=60 mL/min/1.73 m2 may also have CKD if evidence of persistent proteinuria is present. The original MDRD equation for estimated GFR is not valid for patients less than 18 years of age. Additional information may be found at www.kdoqi.org. 30 Reference Guidelines*: Desirable: ........... < 200 mg/dL Borderline High: ..... 200-239 mg/dL High: ................ >=240 mg/dL * The National Cholesterol Education Program (NCEP) 31 Reference Guidelines*: Normal: ............. < 150 mg/dL Borderline High: .... 150-199 mg/dL High: ............... 200-499 mg/dL Very High: .......... > 500 mg/dL * Source: National Cholesterol Education Program (NCEP) 32 Reference Guidelines*: Low HDL: ..... < 40 mg/dL Normal: ..... 40-60 mg/dL Desirable: ... > 60 mg/dL *The National Cholesterol Education Program(NCEP) 33 Reference Guidelines*: Optimal:........... <100 mg/dL Near Optimal....... 100-129 mg/dL Borderline High.... 130-159 mg/dL High............... 160-189 mg/dL Very High.......... >=190 mg/dL * Source: National Cholesterol Education Program (NCEP) 34 Note: Persistent reduction for 3 months or more in an eGFR <60 mL/min/1.73 m2 defines CKD. Patients with eGFR values >/=60 mL/min/1.73 m2 may also have CKD if evidence of persistent proteinuria is present. The original MDRD equation for estimated GFR is not valid for patients less than 18 years of age. Additional information may be found at www.kdoqi.org. 35 Urban Anthropologist: [id number] CARLOS MEDINA The scales inspector and regulatory agencies both recommend that a throat culture for beta strep be performed if a Rapid Group A Strep assay yields a negative result. Therefore a culture will be automatically performed on all negative samples. 36 SEE RESULT BELOW Name: CHANDAN SIMS Maximiliano : [address]: Jaspreet Wallace MD Acct: [id number] Unit: [id number] AGE: 60 Location: [facility] Re08/08/15 SEX: F Status: DEP ER SPEC: [id number] KAVIN: 08/08/15-170 [facility] [address]: Jaspreet Wallace MD REQ: [id number] RECD: 08/09/15 STATUS: KEM ALFORD DR: Karol SENIOR _ SOURCE: THROAT SPDESC: ORDERED: Throat Beta Str Procedure Result Reported Site Throat Beta Strep Culture Final 08/11/15- 0810 ML Negative For Group A Beta Streptococcus * ML - MAIN LAB ([facility]) . END OF REPORT * ML=Testing performed at Main Lab DEPARTMENT OF PATHOLOGY, [address] [place] [address] Romario Alberto M.D. Director [facility] # [id number] 37 Reference Guidelines*: Desirable: ........... < 200 mg/dL Borderline High: ..... 200-239 mg/dL High: ................ >=240 mg/dL * The National Cholesterol Education Program (NCEP) 38 Reference Guidelines*: Normal: ............. < 150 mg/dL Borderline High: .... 150-199 mg/dL High: ............... 200-499 mg/dL Very High: .......... > 500 mg/dL * Source: National Cholesterol Education Program (NCEP) 39 Reference Guidelines*: Low HDL: ..... < 40 mg/dL Normal: ..... 40-60 mg/dL Desirable: ... > 60 mg/dL *The National Cholesterol Education Program(NCEP) 40 Reference Guidelines*: Optimal:........... <100 mg/dL Near Optimal....... 100-129 mg/dL Borderline High.... 130-159 mg/dL High............... 160-189 mg/dL Very High.......... >=190 mg/dL * Source: National Cholesterol Education Program (NCEP) 41 Note: Persistent reduction for 3 months or more in an eGFR <60 mL/min/1.73 m2 defines CKD. Patients with eGFR values >/=60 mL/min/1.73 m2 may also have CKD if evidence of persistent proteinuria is present. The original MDRD equation for estimated GFR is not valid for patients less than 18 years of age. Additional information may be found at www.kdoqi.org. 42 Note: Persistent reduction for 3 months or more in an eGFR <60 mL/min/1.73 m2 defines CKD. Patients with eGFR values >/=60 mL/min/1.73 m2 may also have CKD if evidence of persistent proteinuria is present. The original MDRD equation for estimated GFR is not valid for patients less than 18 years of age. Additional information may be found at www.kdoqi.org. 43 Reference Guidelines*: Desirable: ........... < 200 mg/dL Borderline High: ..... 200-239 mg/dL High: ................ >=240 mg/dL * The National Cholesterol Education Program (NCEP) 44 Reference Guidelines*: Low HDL: ..... < 40 mg/dL Normal: ..... 40-60 mg/dL Desirable: ... > 60 mg/dL *The National Cholesterol Education Program(NCEP) 45 Reference Guidelines*: Optimal:........... <100 mg/dL Near Optimal....... 100-129 mg/dL Borderline High.... 130-159 mg/dL High............... 160-189 mg/dL Very High.......... >=190 mg/dL * Source: National Cholesterol Education Program ( NCEP) 46 Reference Guidelines*: Normal: ............. < 150 mg/dL Borderline High: .... 150-199 mg/dL High: ............... 200-499 mg/dL Very High: .......... > 500 mg/dL * Source: National Cholesterol Education Program (NCEP) 47 Negative <1:80 Borderline 1:80 Positive >1:80 48 A positive ABEBE result may occur in healthy individuals or be associated with a variety of diseases. See interpre- tation below: Pattern Antigen Detected Suggested Disease Association Homogeneous DNA(ds,ss,), High titers - SLE ( Smooth) Histone Speckled Sm, TOWEL CABINET REPAIRER, SCL-70, SLE,MCTD,Scleroderma,Sjogrens SS-A/SS-B ---- Nucleolar SCL-70, PM-1/SCL High titers Scleroderma Poly- myositis/Scleroderma Overlap Centromere Centromere PSS w/Crest syndrome variable Performed at: RN - [facility] [address], [place], [place] [id number] Insurance Loss Assessor: Arielle Tejada MD, Phone: [phone] NO GROWTH: FINAL REPORT 50 [facility]ology Laboratory [address] [place] [address], [address] [place] [address] CYTOLOGY REPORT Name: Chandan Sims Accession # : [id number] : 1955 (Age: 58) Sex: F Location: [facility] Med. Rec. # [id number] Date Collected: 11/30/2013 Billing #: [id number] Date Received: 11/30/2013 Physician(s): KAROL BENSON Source of Specimen: VAGINAL THIN PREP Clinical Information: Date of Last Menstrual Period: None Provided Treatment History: Hysterectomy: 1993 Interpretation: NEGATIVE FOR INTRAEPITHELIAL LESION OR MALIGNANCY. SHIFT IN ANGEL SUGGESTIVE OF BACTERIAL VAGINOSIS. Specimen Adequacy: SATISFACTORY FOR EVALUATION. dcl Electronic Signature JEN Ledbetter (ASCP) Reported: 12/06/2013 [facility] [employer] [facility] ICD-9 Code(s ) V72.31 A; 616.10 51 HDL Interpretation: Undesirable: High Risk: Less than 40 mg/dL Desirable: Low Risk: Greater than 60 mg/dL 52 LDL Interpretation: Low Risk Optimal Level: LDL Less than 100 mg/dL Near or Above Optimal: LDL 100-129 mg/dL Borderline High Risk: LDL 130-159 mg/dL High Risk : LDL 160-189 mg/dL Very High Risk: LDL Greater than 189 mg/dL 53 Therapeutic target for the treatment of diabetes Mellitus patients is <7% HBA1C, and in selective patients <6.0%.Please refer to [place] Diabetes Association Diabetic care guidelines for further information. 54 Because ethnic data is not always readily available, this report includes an eGFR for both -Americans and non- Americans. The National Kidney Disease Education Program (NKDEP) does not endorse the use of the MDRD equation for patients that are not between the ages of 18 and 70, are , have extremes of body size, muscle mass, or nutritional status, or are non- or non-. According to the National Kidney Foundation, irrespective of diagnosis, the stage of the disease is based on the level of kidney function: Stage Description GFR(mL/min/1.73 m(2)) 1 Kidney damage with normal or decreased GFR 90 2 Kidney damage with mild decrease in GFR 60- 89 3 Moderate decrease in GFR 30-59 4 Severe decrease in GFR 15-29 5 Kidney failure <15 (or dialysis) 55 RESULT: If CK result is <100, isoenzyme will not be performed. Test Performed by: [facility] - [address] [address] Body Shop Supervisor: Massimo Caal III, M.D. 56 HDL Interpretation: Undesirable: High Risk: Less than 40 mg/dL Desirable: Low Risk: Greater than 60 mg/dL 57 LDL Interpretation: Low Risk Optimal Level: LDL Less than 100 mg/dL Near or Above Optimal: LDL 100-129 mg/dL Borderline High Risk: LDL 130-159 mg/dL High Risk : LDL 160-189 mg/dL Very High Risk: LDL Greater than 189 mg/dL 58 -- REFERENCE VALUE -- 25-HYDROXY D TOTAL (D2+D3) Optimum levels in the normal population are 25-80 Test Performed by: [address] [address] [employer] Supervisor: Massimo Caal III, M.D. 59 RUN DATE: 01/16/13 [facility] LAB LIVE PAGE 1 RUN TIME: [address] [place] [address] Specimen Inquiry ----- Name: CHANDAN SIMS : [address]: Chandan Quintanilla MD Acct: [id number] Unit: [id number] AGE: 57 Location: [facility] Re01/13/13 SEX: F Status: DEP ER ----- SPEC: [id number] KAVIN: 01/13/13-[address] [facility] [address]: Chandan Quintanilla MD REQ: [id number] RECD: 01/14/130 STATUS: KEM ALFORD DR: Karol SENIOR _ SOURCE: VAGINAL SPDESC: ORDERED: Genital Culture, Affirm ----- Procedure Result Verified Site ----- Genital Culture Final 01/16/13-1040 ML Organism 1 YEAST Quantity 3 + Organism 2 DAVID VAGINALIS - PRESUMPTIVE Quantity 3+ Organism 3 NORMAL ANGEL Quantity 2+ Affirm Vaginal DNA Probe Final 01/14/13-1509 ML Organism 1 Negative Trichomonas Organism 2 POSITIVE GARDNERELLA Organism 3 POSITIVE SOPHIE The presence of G. vaginalis, although suggestive, is not diagnostic for bacterial vaginosis. Results should be interpreted in conjunction with other clinical and laboratory data available. Women with vaginal discharge should be evaluated for risk factors of cervicitis and pelvic inflammatory disease, toxic shock syndrome (S.aureus), and if present, evaluated for organisms not included in this assay such as N. gonorrhoeae, C. trachomatis, Mobiluncus, Mycoplasma and/or Prevotella. Mixed infections may occur. The performance of this test on patient specimens collected during or immediately after antimicrobial therapy is unknown. The presence or absence of Sophei species, G. vaginalis or T. vaginalis cannot be used as a test for therapeutic success or failure. ----- END OF REPORT * ML=Testing performed at Main Lab DEPARTMENT OF PATHOLOGY, [facility] [employer] [place], [place] [address] Romario Alberto M.D. Director [facility] Permit # [id number] RUN DATE: 01/14/13 [facility] LAB LIVE PAGE 1 RUN TIME: 3914 [facility] [employer] [place], [place] [address] Specimen Inquiry ----- Name: CHANDAN SIMS : [address]: Chandan Quintanilla MD Acct: [id number] Unit: [id number] AGE: 57 Location: [facility] Re01/13/13 SEX: F Status: DEP ER ----- SPEC: [id number] KAVIN: 01/13/[address] [facility] [address]: Chandan Quintanilla MD REQ: [id number] RECD: 01/14/13-1220 STATUS: PABLO ALFORD DR: Karol SENIOR _ SOURCE: VAGINAL SPDESC: ORDERED: Genital Culture, Affirm ----- Procedure Result Verified Site ----- Genital Culture PENDING Affirm Vaginal DNA Probe Final 01/14/13- 1509 ML Organism 1 Negative Trichomonas Organism 2 POSITIVE GARDNERELLA Organism 3 POSITIVE SOPHIE The presence of G. vaginalis, although suggestive, is not diagnostic for bacterial vaginosis. Results should be interpreted in conjunction with other clinical and laboratory data available. Women with vaginal discharge should be evaluated for risk factors of cervicitis and pelvic inflammatory disease, toxic shock syndrome (S.aureus), and if present, evaluated for organisms not included in this assay such as N. gonorrhoeae, C. trachomatis, Mobiluncus , Mycoplasma and/or Prevotella. Mixed infections may occur. The performance of this test on patient specimens collected during or immediately after antimicrobial therapy is unknown. The presence or absence of Sophie species, G. vaginalis or T. vaginalis cannot be used as a test for therapeutic success or failure. ----- END OF REPORT * ML=Testing performed at Main Lab DEPARTMENT OF PATHOLOGY, [address] [place] [address] Romario Alberto M.D. Director [facility] Permit # [id number] RUN DATE: 01/17/13 [facility] LAB LIVE PAGE 1 RUN TIME: [address] [place] [address] Specimen Inquiry ----- Name: CHANDAN SIMS : [address]: Chandan Quintanilla MD Acct: [id number] Unit: [id number] AGE: 57 Location: [facility] Re01/13/13 SEX: F Status: DEP ER ----- SPEC: [id number] KAVIN: 01/13/13-17[address] [facility] [address]: Chandan Quintanilla MD REQ: [id number] RECD: 01/14/13-1222 STATUS: KEM ALFORD DR: Karol SENIOR _ SOURCE: ENDOCERVIX SPDESC: ORDERED: KOREY/Sharona RNA COMMENTS: SOURCE VAGINAL B.P HYSTERECTOMY - PER SPECIMEN ----- Procedure Result Verified Site ----- Chlamydia Trachomatis RNA Final 01/17/13-1325 ML NEGATIVE for Chlamydia trachomatis rRNA GC (N. gonorrhoeae) RNA Final 01/17/13-1331 ML NEGATIVE for Neisseria gonorrhoeae rRNA A negative result does not preclude the presence of a C. trachomatis or N. gonorrhoeae infection because results are dependent on adequate specimen collection, absence of inhibitors, and sufficient rRNA to be detected. Test results may be affected by improper specimen collection, improper storage, technical error, or specimen mixup. Limitations of the Procedure: The Aptima Combo 2 Assay is not intended for the evaluation of suspected sexual abuse or for other medico-legal indications. For those patients for whom a false positive result may have adverse psychosocial impact, the CDC recommends retesting by a method using an alternate technology. Therapeutic failure or success cannot be determined with the Aptima Combo 2 Assay since nucleic acid may persist following appropriate antimicrobial therapy. Results from the Aptima Combo 2 Assay should be interpreted in conjunction with other laboratory and clinical data CONTINUED ON NEXT PAGE * ML=Testing performed at Main Lab DEPARTMENT OF PATHOLOGY, [facility] [employer] [place], [place] [address] Romario Alberto M.D. Director [facility] Permit #[id number] RUN DATE: 01/17/13 [facility] LAB LIVE PAGE 2 RUN TIME: 0471 [facility] [employer] [place], [place] [address] Specimen Inquiry ----- Patient: CHANDAN SIMS [id number] (Continued) ----- Specimen: [id number] Collected: 01/13/13 Received: 01/14/13 (Continued) ----- Procedure Result Verified Site ----- GC (N. gonorrhoeae) RNA Final (continued) 01/17/13-133 available to the [facility]. Performance characteristics for detecting C. trachomatis and N. gonorrhoeae are derived from high prevalence populations. Positive results in low prevalence populations should be interpreted carefully with the understanding that the likelihood of a false positive may be higher than a true positive. ----- END OF REPORT * ML=Testing performed at Main Lab DEPARTMENT OF PATHOLOGY, [facility] [place], [place] [address] Romario Alberto M.D. Director [facility] Permit # [id number] RUN DATE: 01/16/13 [facility] LAB LIVE PAGE 1 RUN TIME: 1130 [facility] [employer] [place], [place] [address] Specimen Inquiry ----- Name: CHANDAN SIMS : [address]: Chandan Quintanilla MD Acct: [id number] Unit: [id number] AGE: 57 Location: [facility] Re01/13/13 SEX: F Status: DEP ER ----- SPEC: [id number] KAVIN: 01/13/13-[address] [facility] [address]: Chandan Quintanilla MD REQ: [id number] RECD: 01/14/130 STATUS: KEM ALFORD DR: Karol SENIOR _ SOURCE: URINE SPDESC: ORDERED: Urine Culture ----- Procedure Result Verified Site ----- Urine Culture Final 01/16/13-1130 ML Organism 1 YEAST [place] Count 1-10,000 (Few) CFU/ML ----- END OF REPORT * ML=Testing performed at Main Lab DEPARTMENT OF PATHOLOGY, [address] [place] [address] Romario Alberto M.D. Director [facility] Permit # [id number] RUN DATE: 12/08/12 [facility] LAB LIVE PAGE 1 RUN TIME: [address] [place] [address] Specimen Inquiry ----- Name: CHANDAN SIMS : [address]: Betty Anderson MD Acct: [id number] Unit: [id number] AGE: 57 Location: [facility] Re12/05/12 SEX: F Status: DEP ER ----- SPEC: [id number] KAVIN: 12/05/12-1327 [facility] [address]: Betty Anderson MD REQ: [id number] RECD: 12/06/12-1036 STATUS: KEM ALFORD DR: Karol Salazar PA _ SOURCE: URINE [facility]: ORDERED: Urine Culture ----- Procedure Result Verified Site ----- Urine Culture Final 12/08/12-0917 ML Organism 1 STREP GROUP B [place] Count 1-10,000 (Few) CFU/ML Organism 2 NORMAL ANGEL [place] Count 1-10,000 ( Few) CFU/ML Susceptibility testing of penicillins and other B-lactams approved by FDA for treatment of Streptococcus pyogenes (Group A Strep) and Streptococcus agalactiae (Group B Strep) is not necessary for clinical purposes and need not be done routinely, since as with vancomycin, resistant strains have not been recognized. (CLSI L603-Y94;p.66) Positive isolates will be saved for one week. Please call the Microbiology Laboratory if further susceptibility testing is needed. ----- END OF REPORT * ML=Testing performed at Main Lab DEPARTMENT OF PATHOLOGY, [facility] [place], [place] [address] Romario Alberto M.D. Director [facility] Permit # [id number] RUN DATE: 10/20/12 [facility] LAB LIVE PAGE 1 RUN TIME: 8903 [facility] [employer] [place], [place] [address] Specimen Inquiry ----- Name: CHANDAN SIMS : [address]: Betty Anderson MD Acct: [id number] Unit: [id number] AGE: 57 Location: [facility] Re10/19/12 SEX: F Status: DEP ER ----- SPEC: [id number] KAVIN: 10/19/12-[address] [facility] [address]: Betty Anderson MD REQ: [id number] RECD: 10/19/12491 STATUS: KEM ALFORD DR: Karol Salazar PA _ SOURCE: VAGINAL SPDESC: ORDERED: Affirm ----- Procedure Result Verified Site ----- Affirm Vaginal DNA Probe Final 10/20/12-1456 ML Trichomonas Negative Gardnerella Positive Sophie Negative The presence of G. vaginalis, although suggestive, is not diagnostic for bacterial vaginosis. Results should be interpreted in conjunction with other clinical and laboratory data available. Women with vaginal discharge should be evaluated for risk factors of cervicitis and pelvic inflammatory disease, toxic shock syndrome (S.aureus), and if present, evaluated for organisms not included in this assay such as N. gonorrhoeae, C. trachomatis, Mobiluncus, Mycoplasma and/or Prevotella. Mixed infections may occur. The performance of this test on patient specimens collected during or immediately after antimicrobial therapy is unknown. The presence or absence of Sophie species, G. vaginalis or T. vaginalis cannot be used as a test for therapeutic success or failure. ----- END OF REPORT * ML=Testing performed at Main Lab DEPARTMENT OF PATHOLOGY, [address] [place] [address] Romario Alberto M.D. Director [facility] Permit # [id number] RUN DATE: 10/21/12 [facility] LAB LIVE PAGE 1 RUN TIME: 1618 [address] [place], [place] [address] Specimen Inquiry ----- Name: CHANDAN SIMS : [address]: Betty Anderson MD Acct: [id number] Unit: [id number] AGE: 57 Location: [facility] Re10/19/12 SEX: F Status: DEP ER ----- SPEC: [id number] KAVIN: 10/19/[address] [facility] [address]: Betty Anderson MD REQ: [id number] RECD: 10/19/12 STATUS: KEM ALFORD DR: Karol Salazar PA _ SOURCE: ENDOCERVIX SPDESC: ORDERED: KOREY/Aurelioam RNA ----- Procedure Result Verified Site ----- Chlamydia Trachomatis RNA Final 10/21/12-1618 ML NEGATIVE for Chlamydia trachomatis rRNA GC (N. gonorrhoeae) RNA Final 10/21/12-1618 ML NEGATIVE for Neisseria gonorrhoeae rRNA A negative result does not preclude the presence of a C. trachomatis or N. gonorrhoeae infection because results are dependent on adequate specimen collection, absence of inhibitors, and sufficient rRNA to be detected. Test results may be affected by improper specimen collection, improper storage, technical error, or specimen mixup. Limitations of the Procedure: The Aptima Combo 2 Assay is not intended for the evaluation of suspected sexual abuse or for other medico-legal indications. For those patients for whom a false positive result may have adverse psychosocial impact, the CDC recommends retesting by a method using an alternate technology. Therapeutic failure or success cannot be determined with the Aptima Combo 2 Assay since nucleic acid may persist following appropriate antimicrobial therapy. Results from the Aptima Combo 2 Assay should be interpreted in conjunction with other laboratory and clinical data available to the clinican. Performance characteristics for detecting C. trachomatis and CONTINUED ON NEXT PAGE * ML=Testing performed at Main Lab DEPARTMENT OF PATHOLOGY, [facility] [address] [place], [place] [address] Romario Alberto M.D. Director [facility] Permit #[id number] RUN DATE: 10/21/12 [facility] LAB LIVE PAGE 2 RUN TIME: 7829 [facility] [employer] [place], [place] [address] Specimen Inquiry ----- Patient: CHANDAN SIMS [id number] (Continued) ----- Specimen: [id number] Collected: 10/19/12 Received: 10/19/12 (Continued) ----- Procedure Result Verified Site ----- GC (N. gonorrhoeae) RNA Final (continued) 10/21/12-1618 N. gonorrhoeae are derived from high prevalence populations. Positive results in low prevalence populations should be interpreted carefully with the understanding that the likelihood of a false positive may be higher than a true positive. ----- END OF REPORT * ML=Testing performed at Main Lab DEPARTMENT OF PATHOLOGY, [facility] [place], [place] [address] Romario Alberto M.D. Director [facility] Permit # [id number] 66 Therapeutic target for the treatment of diabetes Mellitus patients is <7% HBA1C, and in selective patients <6.0%.Please refer to [place] [employer] Diabetic care guidelines for further information. 67 HDL Interpretation: Undesirable: High Risk: Less than 40 MG/DL Desirable: Low Risk: Greater than 60 MG/DL 68 LDL Interpretation: Low Risk Optimal Level: LDL Less than 100 MG/DL Near or Above Optimal: LDL 100-129 MG/DL Borderline High Risk: LDL 130-159 MG/DL High Risk : LDL 160-189 MG/DL Very High Risk: LDL Greater than 189 MG/DL 69 Because ethnic data is not always readily available, this report includes an eGFR for both -Americans and non- Americans. The National Kidney Disease Education Program (NKDEP) does not endorse the use of the MDRD equation for patients that are not between the ages of 18 and 70, are , have extremes of body size, muscle mass, or nutritional status, or are non- or non-. According to the National Kidney Foundation, irrespective of diagnosis, the stage of the disease is based on the level of kidney function: Stage Description GFR(mL/min/1.73 m(2)) 1 Kidney damage with normal or decreased GFR 90 2 Kidney damage with mild decrease in GFR 60- 89 3 Moderate decrease in GFR 30-59 4 Severe decrease in GFR 15-29 5 Kidney failure <15 (or dialysis) 70 RUN DATE: 06/06/12 [facility] LAB LIVE PAGE 1 RUN TIME: [address] [place] [address] Specimen Inquiry ----- Name: CHANDAN SIMS : [address]: Lonnie Aparicio MD Acct: [id number] Unit: [id number] AGE: 57 Location: [facility] Re SEX: F Status: DEP ER ----- SPEC: [id number] KAVIN: 06/04/[address] [facility] [address]: Lonnie Aparicio MD REQ: [id number] RECD: 06/04/12 STATUS: KEM ALFORD DR: Karol Salazar PA _ SOURCE: URINE [facility]: ORDERED: Urine Culture ----- Procedure Result Verified Site ----- Urine Culture Final 06/06/12 ML Organism 1 NORMAL ANGEL [place] Count 10-25,000 (Moderate) CFU/ML ----- END OF REPORT * ML=Testing performed at Main Lab DEPARTMENT OF PATHOLOGY, [facility] [place], [place] [address] Romario Alberto M.D. Director [facility] Permit # [id number] RUN DATE: 06/05/12 [facility] LAB LIVE PAGE 1 RUN TIME: 811 [facility] [employer] [place], [place] [address] Specimen Inquiry ----- Name: CHANDAN SIMS : [address]: Alessandra CASAS, Lonnie Butler Acct: [id number] Unit: [id number] AGE: 57 Location: [facility] Re SEX: F Status: DEP ER ----- SPEC: [id number] KAVIN: 06/04/12-[address] [facility] [address]: Lonnie Aparicio MD REQ: [id number] RECD: 06/05/12 STATUS: KEM ALFORD DR: Karol Salazar PA _ SOURCE: VAGINAL SPDESC: ORDERED: Affirm ----- Procedure Result Verified Site ----- Affirm Vaginal DNA Probe Final 06/05/12 ML Trichomonas Negative Gardnerella Negative Sophie Positive The presence of G. vaginalis, although suggestive, is not diagnostic for bacterial vaginosis. Results should be interpreted in conjunction with other clinical and laboratory data available. Women with vaginal discharge should be evaluated for risk factors of cervicitis and pelvic inflammatory disease, toxic shock syndrome (S.aureus), and if present, evaluated for organisms not included in this assay such as N. gonorrhoeae, C. trachomatis, Mobiluncus, Mycoplasma and/or Prevotella. Mixed infections may occur. The performance of this test on patient specimens collected during or immediately after antimicrobial therapy is unknown. The presence or absence of Sophie species, G. vaginalis or T. vaginalis cannot be used as a test for therapeutic success or failure. ----- END OF REPORT * ML=Testing performed at Main Lab DEPARTMENT OF PATHOLOGY, [facility] [place], [place] [address] Romario Alberto M.D. Director [facility] Permit # [id number] RUN DATE: 05/10/12 [facility] LAB LIVE PAGE 1 RUN TIME: 1358 [facility] [employer] [place], [place] [address] Specimen Inquiry ----- Name: CHANDAN SIMS : [address]: Haley Diaz MD Acct: [id number] Unit: [id number] AGE: 57 Location: [facility] Re05/09/12 SEX: F Status: DEP ER ----- SPEC: [id number] KAVIN: 05/09/[address] [facility] [address]: Haley Diaz MD REQ: [id number] RECD: 05/09/12 STATUS: COMP ISAAC DR: Karol Salazar PA _ SOURCE: ENDOCERVIX SPDES: ORDERED: Chlamydia RNA, GC RNA ----- Procedure Result Verified Site ----- Chlamydia Trachomatis RNA Final 05/10/12-1358 ML NEGATIVE for Chlamydia trachomatis rRNA A negative result does not preclude the presence of a C. trachomatis or N. gonorrhoeae infection because results are dependent on adequate specimen collection, absence of inhibitors, and sufficient rRNA to be detected. Test results may be affected by improper specimen collection, improper storage, technical error, or specimen mixup. Limitations of the Procedure: The Aptima Combo 2 Assay is not intended for the evaluation of suspected sexual abuse or for other medico-legal indications. For those patients for whom a false positive result may have adverse psychosocial impact, the CDC recommends retesting by a method using an alternate technology. Therapeutic failure or success cannot be determined with the Aptima Combo 2 Assay since nucleic acid may persist following appropriate antimicrobial therapy. Results from the Aptima Combo 2 Assay should be interpreted in conjunction with other laboratory and clinical data available to the clinican. Performance characteristics for detecting C. trachomatis and N. gonorrhoeae are derived from high prevalence populations. Positive results in low prevalence populations should be interpreted carefully with the understanding that the * * CONTINUED ON NEXT PAGE * ML=Testing performed at Main Lab DEPARTMENT OF PATHOLOGY, [facility] [employer] [place], [place] [address] Romario Alberto M.D. Director [facility] Permit # [id number] RUN DATE: 05/10/12 [facility] LAB LIVE PAGE 2 RUN TIME: [address] [employer] [place], [place] [address] Specimen Inquiry ----- Patient: CHANDAN SIMS [id number] (Continued) ----- Specimen: [id number] Collected: 05/09/12 Received: 05/09/12 (Continued) ----- Procedure Result Verified Site ----- Chlamydia Trachomatis RNA Final (continued) 05/10/12 likelihood of a false positive may be higher than a true positive. GC (N. gonorrhoeae) RNA Final 05/10/12 ML NEGATIVE for Neisseria gonorrhoeae rRNA A negative result does not preclude the presence of a C. trachomatis or N. gonorrhoeae infection because results are dependent on adequate specimen collection, absence of inhibitors , and sufficient rRNA to be detected. Test results may be affected by improper specimen collection, improper storage, technical error, or specimen mixup. Limitations of the Procedure: The Aptima Combo 2 Assay is not intended for the evaluation of suspected sexual abuse or for other medico-legal indications. For those patients for whom a false positive result may have adverse psychosocial impact, the [facility] recommends retesting by a method using an alternate technology. Therapeutic failure or success cannot be determined with the Aptima Combo 2 Assay since nucleic acid may persist following appropriate antimicrobial therapy. Results from the Aptima Combo 2 Assay should be interpreted in conjunction with other laboratory and clinical data available to the clinican. Performance characteristics for detecting C. trachomatis and N. gonorrhoeae are derived from high prevalence populations. Positive results in low prevalence populations should be interpreted carefully with the understanding that the likelihood of a false positive may be higher than a true positive. ----- END OF REPORT * ML=Testing performed at Main Lab DEPARTMENT OF PATHOLOGY, [facility] [address] [place], [place] [address] Romario Alberto M.D. Director [facility] Permit # [id number] RUN DATE: 05/10/12 [facility] LAB LIVE PAGE 1 RUN TIME: 9394 [facility] [employer] [place], [place] [address] Specimen Inquiry ----- Name: CHANDAN SIMS : [address]: Haley Diaz MD Acct: [id number] Unit: [id number] AGE: 57 Location: [facility] Re05/09/12 SEX: F Status: DEP ER ----- SPEC: [id number] KAVIN: 05/09/[address] [facility] [address]: Haley Diaz MD REQ: [id number] RECD: 05/09/12 STATUS: KEM ALFORD DR: Karol Salazar PA _ SOURCE: VAGINAL SPDESC: ORDERED: Affirm ----- Procedure Result Verified Site ----- Affirm Vaginal DNA Probe Final 05/10/12-1511 ML Trichomonas Negative Gardnerella Negative Sophie Positive The presence of G. vaginalis, although suggestive, is not diagnostic for bacterial vaginosis. Results should be interpreted in conjunction with other clinical and laboratory data available. Women with vaginal discharge should be evaluated for risk factors of cervicitis and pelvic inflammatory disease, toxic shock syndrome (S.aureus), and if present, evaluated for organisms not included in this assay such as N. gonorrhoeae, C. trachomatis, Mobiluncus, Mycoplasma and/or Prevotella. Mixed infections may occur. The performance of this test on patient specimens collected during or immediately after antimicrobial therapy is unknown. The presence or absence of Sophie species, G. vaginalis or T. vaginalis cannot be used as a test for therapeutic success or failure. ----- END OF REPORT * ML=Testing performed at Main Lab DEPARTMENT OF PATHOLOGY, [address] [place] [address] Romario Alberto M.D. Director [facility] Permit # [id number] ------- RUN DATE: 03/15/12 [facility] TIME: 918 Specimen Inquiry RUN USER: INTERFACE ----- Name: CHANDAN SIMS Status: SHAHID CLI Re Age/Sex: 56/F Unit#: [id number] Location: [facility] : [birth year] ----- SPEC #: [id number] KAVIN: 03/13/12 STATUS: KEM REQ #: [id number] RECD: 03/13/12-[address] [facility] [address]: Alessandra CASAS,Lonnie Butler SOURCE: URINE ENTR: 03/13/[address]: Marie [facility],Karol Butler [facility]: ORDERED: URINE C S QUERIES: SPECIMEN DESCRIPTION: URINE, CLEAN CATCH ACT WKST: UR 03/15/12 #1 ----- Procedure Result Verified Site ----- > URINE CULTURE SENSITIVI Final 03/15/12-918 ML SPECIMEN CONTAINS NORMAL URETHRAL OR PERINEAL ANGEL AND DOES NOT SUGGEST URINARY TRACT INFECTION ----- [facility] Permit #[id number] [address] [place] [address] ----- DEPARTMENT OF PATHOLOGY, [address] [place] [address] [facility] Permit #[id number] Hemal Martinez M.D. New Order Clerk ----- 75 ------- RUN DATE: 03/13/12 [facility] LIVE PAGE 1 RUN TIME: 1212 Specimen Inquiry RUN USER: INTERFACE ----- Name: CHANDAN SIMS Status: DEP CLI Re Age/Sex: 56/F Unit#: [id number] Location: [facility] : 53 ----- SPEC #: [id number] KAVIN: 03/13/12 STATUS: COMP REQ #: [id number] RECD: 03/13/[address] [facility] [address]: Lonnie Aparicio MD SOURCE: VAGINAL ENTR: 03/13/12-[address] [facility] [address]: [facility] ORDERED: AFFIRM ACT WKST: AFFIRM 03/13/12 #2 ----- Procedure Result Verified Site ----- > VAGINAL DNA PROBE Final 03/13/12-1212 ML TRICHOMONAS NEGATIVE GARDNERELLA NEGATIVE SOPHIE SPP POSITIVE The presence of G. vaginalis, although suggestive, is not diagnostic for bacterial vaginosis. Results should be interpreted in conjunction with other clinical and laboratory data available. Women with vaginal discharge should be evaluated for risk factors of cervicitis and pelvic inflammatory disease, toxic shock syndrome (S.aureus), and if present, evaluated for organisms not included in this assay such as N. gonorrhoeae, C. trachomatis, Mobiluncus, Mycoplasma and/or Prevotella. Mixed infections may occur. The performance of this test on patient specimens collected during or immediately after antimicrobial therapy is unknown. The presence or absence of Sophie species, G. vaginalis or T. vaginalis cannot be used as a test for therapeutic success or failure. ----- - [facility] Permit #[id number] [address] [place] [address] ----- DEPARTMENT OF PATHOLOGY, [address] [place] [address] [facility] Permit #[id number] Romario Alberto M.D. Director Charlie Greenwood M.D. New Order Clerk ----- 76 THERAPEUTIC TARGET FOR THE TREATMENT OF DIABETES MELLITUS PATIENTS IS <7% HBA1C, AND IN SELECTIVE PATIENTS <6.0%. PLEASE REFER TO [employer] DIABETIC CARE GUIDELINES FOR FURTHER INFORMATION. 77 Anion gap measurement may be of limited value in the presence of any alkalosis, especially in a combined acid base disorder. . 78 Because ethnic data is not always readily available, this report includes an eGFR for both -Americans and non- Americans. The National Kidney Disease Education Program (NKDEP) does not endorse the use of the MDRD equation for patients that are not between the ages of 18 and 70, are , have extremes of body size, muscle mass, or nutritional status, or are non- or non-. According to the National Kidney Foundation, irrespective of diagnosis, the stage of the disease is based on the level of kidney function: Stage Description GFR(mL/min/1.73 m(2)) 1 Kidney damage with normal or decreased GFR 90 2 Kidney damage with mild decrease in GFR 60- 89 3 Moderate decrease in GFR 30-59 4 Severe decrease in GFR 15-29 5 Kidney failure <15 (or dialysis) 79 CHOLESTEROL INTERPRETATION: Desirable: Less than 200 MG/DL Borderline-High Risk: 200-239 MG/DL High-Risk: 240 MG/DL and over 80 HDL INTERPRETATION: Undesirable: High Risk: Less than 40 MG/DL Desirable: Low Risk: Greater than 60 MG/DL 81 LDL INTERPRETATION: Low Risk Optimal Level: LDL Less than 100 MG/DL Near or Above Optimal: LDL 100-129 MG/DL Borderline High Risk: LDL 130-159 MG/DL High Risk : LDL 160-189 MG/DL Very High Risk: LDL Greater than 189 MG/DL 82 A metabolite of Naproxen, O-desmethylnaproxen, has been shown to interfere with the Jenpedro luisik-Ricardo method for measuring total bilirubin. Samples from patients who have taken Naproxen have shown spurious elevation in total bilirubin levels. 83 UNABLE TO CALCULATE IND.BILI D.BILI IS <0.1 Please note updated reference range, effective 01/30/10 84 Cytology Laboratory [address] [facility], [address] [place] [address] CYTOLOGY REPORT Name: Chandan Sims Accession # : [id number] : 1955 (Age: 56) Sex: F Location: [facility] Date Collected: 08/27/2011 Billing #: [id number] Date Received: 08/28/2011 Physician (s): KAROL BENSON Source of Specimen: VAGINAL THIN PREP Clinical Information: Date of Last Menstrual Period: None Provided Treatment History: Hysterectomy : 1993 Specimen Adequacy: SATISFACTORY FOR EVALUATION. General Categorization: NEGATIVE FOR INTRAEPITHELIAL LESION OR MALIGNANCY. Descriptive Evaluation: REACTIVE CELLULAR CHANGES ASSOCIATED WITH INFLAMMATION. FUNGAL ORGANISMS MORPHOLOGICALLY CONSISTENT WITH SOPHIE SP. jib Electronic Signature Matthias Wallis MD Reported: 09/01/2011 Also seen by: JEN Jerome (ASCP) Cytology Outreach [facility] ICD-9 Code(s) V72.31 V76.47 A: 616.9 112.1 Procedures Date CPT Code Description Status Comment 11/29/2017 Mammogram Completed 04/19/2017 Bone Mineral Density Test Completed Prior 2011, 2009, 200604/01/2017 65647 Colonoscopy With Polypectomy Completed 04/01/2017 68714 Colonoscopy With Biopsy Completed 04/01/2017 83068 EGD With Biopsy Completed 04/01/2017 Colonoscopy Completed Multiple polyps Prior 03/30/2006 05/27/2016 Mammogram Completed 11/26/2015 Mammogram Completed 02/06/2015 25380 Echocardiogram Complete Completed 11/19/2014 Mammogram Completed 11/16/2014 88006 Anesthesia, Anorectal Surgery Completed 11/16/2014 21226 Sigmoidoscope With Biopsy Completed 11/16/2014 69416 Hemorrhoidectomy Internal Completed Ligation Other Than Rubber Band Multipl 02/26/2014 36012 Mammography Unilateral Completed 09/27/2009 21379 Aspiration/Injection joint Completed intermediate(wrist/ankle/elbow/ olbursa 05/17/2008 60190 Removal Skin Tags/Multi To 15 Completed 04/15/2007 61521 Destruct-Skin Completed Tags/Lesions-Local Anesthesia - First Lesion 04/08/2007 05966 Destruct-Skin Completed Tags/Lesions-Local Anesthesia - First Lesion 03/04/2007 57443 Exc Other Benign Lesion Completed Trunk,Arms Or Legs 0.5CM Or Less 03/30/2006 Colonoscopy Completed Document: 03/30/06 - Operative Report 06/06/2001 90527 Destruct-Skin Completed Tags/Lesions-Local Anesthesia - First Lesion 06/06/2001 02623 Destruct-Skin Completed Tags/Lesions-Local Anesthesia- 2-14 Lesions 02/15/2001 58625 Destruct-Skin Completed Tags/Lesions-Local Anesthesia - First Lesion 02/15/2001 91388 Destruct-Skin Completed Tags/Lesions-Local Anesthesia- 2-14 Lesions 30952 Colonoscopy Completed Encounters Type Date Location Provider CPT E/M Dx Office Visit 03/23/2018 4:[place] [address] K62.5 K63.5 K21.0 Office Visit 02/25/2018 9:30a Primary Care Office Karol Salazar [facility] [address] I10 E78.5 Z85.3 B35.1 L82.0 Office Visit 07/29/2017 2:15p Primary Care Office Karol Salazar 40773 K21.0 [facility] E78.5 I10 Office Visit 05/14/2017 11:15[place] [address] K21.0 K63.5 Office Visit 03/24/2017 4:00[place] [address] Z12.11 R12 Office Visit 03/09/2017 1:30p Primary Care Office Karol Salazar 33511 E78.5 RPAC I10 Office Visit 09/15/2016 1:30p Primary Care Office Karol Salazar [facility] 88927 I10 M06.4 E78.5 Office Visit 06/30/2016 2:00p [facility] [address] N23 Office Visit 03/12/2016 9:30a [facility] [address]3878 I10 E78.5 M06.4 Office Visit 10/21/2015 9:30a Primary Care Office Karol Salazar 52781 H81.10 RPAC Office Visit 10/03/2015 1:45p Primary Care Office Karol Salazar, 91479 J20.9 RPAC Office Visit 09/12/2015 9:15a Primary Care Office Karol Salazar, 62633 I10 RPAC E78.5 M06.4 Office Visit 03/05/2015 9:00a Primary Care Office Najma Salazart, 19680 401.1 RPAC 272.4 Office Visit 01/25/2015 9:45a Primary Care Office Najma Salazart, 27764 401.1 RPAC 272.4 Office Visit 01/10/2015 9:30a Primary Care Office Karol Salazar, 32382 786.2 RPAC 401.1 Office Visit 01/03/2015 11:20a [place] [address] 786.2 401.1 Office Visit 10/18/2014 12:00p Surgical Office Tim Campa, 71320 569.1 M.DAdrian Plan of Care Future Appointment(s):06/23/2018 2:15 pm - Constantino Melara MD at GI09/09/2018 1:00 pm - Karol Salazar RPAC at Primary Care Office
--- NOTE | 2018-06-03 16:07 | UC ---
Respiratory Complaint HPI - HPI Summary HPI Summary: Pt is currently being tx'd for pneumonia after finding it on CT from pcp. Currently on several meds: cefuroxime, cheratussin, albuterol w/ spacer and is n her last bit of tessalon perles. Her main concern is the cough that keeps her up. - History of Current Complaint Stated Complaint: COUGH Time Seen by Provider: 06/03/18 16:07 Hx Obtained From: Patient Hx Last Menstrual Period: n/a ?: No Onset/Duration: Lasting Weeks - Allergies/Home Medications Allergies/Adverse Reactions: Allergies Allergy/AdvReac Type Severity Reaction Status Date / Time Sulfa (Sulfonamide Allergy Unknown Verified 06/03/18 16:17 Antibiotics) Reaction Details Home Medications: Home Medications Codeine Phosphate/Guaifenesin [Cheratussin AC] 2.5 - 3 ml PO TID 06/03/18 [ History Confirmed 06/03/18] Fluticasone NASAL SPRAY 50MCG* [Flonase NASAL SPRAY 50MCG*] 2 spray DAILY [History Confirmed 06/03/18] ceFUROXime TAB(*) [Ceftin TAB 250 MG(*)] 500 mg PO BID 06/03/18 [History Confirmed 06/03/18] PMH/Surg Hx/FS Hx/Imm Hx Other History Of: Hepatitis B - She had hepatitis when she was 16 years old-- type is unknown. Negative For: HIV, Hepatitis C, Anticoagulant Therapy - Surgical History Surgical History: Yes Surgery Procedure, Year, and Place: Left Breast Lumpectomy, 2012, [place]. Complete Hysterectomy, (age-37) 1992, [facility] - Family History Known Family History: Positive: Hypertension, Diabetes - Social History Alcohol Use: Occasionally Substance Use Type: None Smoking Status (MU): Former Smoker Length of Time of Smoking/Using Tobacco: ~1 PPD x 8 Years Have You Smoked in the Last Year: No When Did the Patient Quit Smoking/Using Tobacco: ~1977 - Immunization History Most Recent Influenza Vaccination: Not this Season Review of Systems All Other Systems Reviewed And Are Negative: Yes Constitutional: Positive: Negative Skin: Positive: Negative Respiratory: Positive: Cough - now chronic Cardiovascular: Positive: Negative Gastrointestinal: Positive: Negative Physical Exam Triage Information Reviewed: Yes Appearance: Well-Appearing Vital Signs Reviewed: Yes Neck exam: Normal Respiratory Exam: Normal Cardiovascular Exam: Normal Respiratory Course/Dx - Differential Dx/Diagnosis Differential Diagnosis/HQI/PQRI: Asthma, Bronchitis, Influenza, Lower Resp Infection Provider Diagnoses: Reactive airway s/p pneumonia treatment Discharge - Sign-Out/Discharge Documenting (check all that apply): Patient Departure All imaging exams completed and their final reports reviewed: No Studies - Discharge Plan Condition: Good Disposition: HOME Prescriptions: Benzonatate CAP* [Tessalon 100 MG CAP*] 100 mg PO TID #9 cap predniSONE [Deltasone 20 MG TAB] 20 mg PO DAILY #5 tablet Patient Education Materials: Reactive Airways Disease (ED) Forms: *Work Release Referrals: Loulou Salazar PA [Primary Care Provider] - Additional Instructions: You are currently being treated for pneumonia, please finish your antibiotic. It appears you are still having a reactive airway response. Please continue to use your inhaler, tessalon perles and I have added a few days of another steroid burst. Follow up with primary care if not improving. - Billing Disposition and Condition Condition: GOOD Disposition: Home
[2018-06-03 16:16] VITALS: BP 147/81
== END 2018-06-03 17:08 | disposition home or self-care (01) ==
LOC: UCCORT 14:29
DX: J45.909 Unspecified asthma, uncomplicated (principal); Z88.1 Allergy status to other antibiotic agents; Z87.891 Personal history of nicotine dependence
CPT/HCPCS: 99212; G0463

== ENCOUNTER 2018-10-30 07:46 | Emergency (ER) | payer BC ==
--- OUTSIDE RECORDS SUMMARY | 2018-10-30 07:52 | XMS REPORT | Continuity of Care Document ---
:1955 External Reference #:[id number] Author Name Carol Hoff Care Team Providers Name Role Phone Loulou Salazar RPA Primary Care Physician Unavailable Payers Date Identification Numbers Payment Provider Subscriber Effective: 2002 Policy Number: [id number] [employer] Group Number: [id number] [address] Pay[address]: [id number] MIKA Macias [address] Expires: 2002 Policy Number: [id number] BS Of SOLO [employer] Group Number: [id number] [address] PayID: [id number] MIKA Macias [address] Advance Directives Description No Information Available Problems Date Description Provider Status Onset: 09/22/2018 Personal history of primary malignant Loulou Dupont, PA Active neoplasm of breast Note: left/IDC, 2012 Onset: 09/22/2018 Essential hypertension Loulou Marie, PA Active Onset: 09/22/2018 Hyperlipidemia Loulou Marie, PA Active Onset: 09/22/2018 Vitamin D deficiency Loulouulysses Salazar, PA Active Onset: 09/22/2018 Undifferentiated connective tissue oLulou Salazar, PA Active disease Note: 2013 Onset: 09/22/2018 Gastro-esophageal reflux disease with Loulou Dupont, PA Active esophagitis Onset: 09/22/2018 Contact dermatitis due to detergent Loulou Dupont, PA Active Onset: 09/22/2018 Serrated polyp of colon Loulou Marie, PA Active Note: SSA/P 03/2017 Onset: 09/22/2018 Diverticular disease of colon Loulou Marie, PA Active Family History Date Family Member(s) Observation Comments Father Arthritis inflammatory Social History Type Date Description Comments Sex Unknown Lives With Spouse Diet Patient follows no dietary restrictions 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 ETOH Use Occasionally consumes alcohol Tobacco Use Start: Unknown End: Patient is a former smoker Unknown Smoking Status Reviewed: 10/03/18 Patient is a former smoker Enjoy Exercising Exercises Regulary Allergies, Adverse Reactions, Alerts Date Description Reaction Status Severity Comments 09/22/2018 Lamisil Active 09/22/2018 Lisinopril Active 09/22/2018 Arimidex Active 10/03/2018 Montelukast insomnia Active Medications Medication Date Status Form Strength Qnty SIG Indications Ordering Provider Lansoprazole 10/03/ Active Capsules 15mg 1 by mouth Randy 2019 DR every day Farzad ortez MD Azithromycin 10/03/ Active Tablets 250mg 11tabs 2 tabs by Gutierrez Padilla 2019 mouth Panda today then MD neelima 1 tab by mouth daily Amlodipine 09/22/ Active Tablets 2.5mg 1 by mouth Randy Besylate 2018 every day Farzad ortez MD Vitamin D-1000 09/22/ Active Tablets 1000Unit 1 tab by Randy Klein 2019 mouth Panda Strength every day MD neelima Calcium 600+D 09/22/ Active Tablets 600-400mg- 1 tab by Randy High Potency 2019 Unit mouth Panda every day MD neelima Atorvastatin 09/22/ Active Tablets 80mg 1 tab by Randy Calcium 2019 mouth Panda every day MD neelima Econazole 09/22/ Active Cream 1% 30gm Thin layer B35.4 Randy Jama 2018 to breast Panda rash tid MD neelima Lansoprazole 09/22/ Hx Capsules 15mg 1 cap by Randy 2018 - DR betzy Panda 09/22/ every day MD neelima 2018 Montelukast 09/22/ Hx Tablets 10mg 90tabs 1 by mouth Gutierrez Becerra 2019 - every day Panda 10/03/ MD neelima 2018 Prednisone / Hx Tablets 20mg take 1 Unknown 0000 - tablet by mouth once 2019 daily Benzonatate / Hx Capsules 100mg take 1 Unknown 0000 - capsule by mouth 2018 three times a day Ventolin HFA / Hx Aerosol 108(90Base inhale 2 Unknown 0000 - ) mcg/Act puffs by mouth 2018 every 4 hours if needed for wheezing Doxycycline / Hx Capsules 100mg take 1 Unknown Hyclate 0000 - capsule by mouth 2018 twice a day Immunizations Description No Information Available Vital Signs Date Vital Result Comment 10/03/2018 11:01am Height 64 inches 5'4" Weight 138.00 lb Heart Rate 86 /min BP Systolic 134 mmHg BP Diastolic 80 mmHg Body Temperature 98.8 F O2 % BldC Oximetry 97 % BMI (Body Mass Index) 23.7 kg/m2 09/22/2018 1:07pm Weight 144.50 lb Heart Rate 74 /min BP Systolic 140 mmHg BP Diastolic 84 mmHg O2 % BldC Oximetry 95 % Results Description No Information Available Procedures Date Code Description Status 11/29/2017 84421685 Mammogram Completed 04/01/2017 72288301 Colonoscopy Completed Encounters Type Date Location Provider Dx Diagnosis Office Visit 09/22/2018 1:00p [facility] Primary Care NADEEN Graham R05 Cough B35.4 Tinea corporis E78.5 Hyperlipidemia, unspecified I10 Essential (primary) hypertension Plan of Treatment Future Appointment(s):03/27/2019 9:00 am - NADEEN Graham at [facility] Primary Care10/03/2018 - HARRIS Graham CoughNew Medication:Azithromycin 250 mg - 2 tabs by mouth today then 1 tab by mouth daily
--- NOTE | 2018-10-30 07:56 | UC ---
General HPI - HPI Summary HPI Summary: Patient is a 63 year old female , who present today to the urgent care with left sided jaw pain for past 3 days. She reports that she was at [employer], and she felt her jaw shift slightly while eating a soft toast for breakfast. Since then she has noticed left jaw pain and has limited mouth opening. She did not wake up with any pain. She had similar episode about 30 years ago and was evaluated and workup was negative. Denies any dental pain in her last visit with the dentist was in August where she had full mouth x-rays which were negative.. She denies any fever, chills, cough chest pain or shortness of breath . Denies any abdominal pain , nausea or vomiting , diarrhea or constipation. She has been taking Tylenol or Advil as needed - History of Current Complaint Stated Complaint: JAW COMPLAINT(?DISLOCATION) Time Seen by Provider: 10/30/18 07:53 Hx Obtained From: Patient Hx Last Menstrual Period: n/a - Allergy/Home Medications Allergies/Adverse Reactions: Allergies Allergy/AdvReac Type Severity Reaction Status Date / Time Sulfa (Sulfonamide Allergy Unknown Verified 10/30/18 07:52 Antibiotics) Reaction Details Home Medications: Home Medications Econazole 1% CREAM (NF) [Econazole 1 % CREAM (NF)] 1 applic TOPICAL DAILY [History Confirmed 10/30/18] PMH/Surg Hx/FS Hx/Imm Hx - Additional Past Medical History Additional PMH: Hypertension Hyperlipidemia Hepatitis A GERD Breast cancer status post lumpectomy Previously Healthy: Yes Other History Of: Hepatitis B - She had hepatitis when she was 16 years old-- type is unknown. Negative For: HIV, Hepatitis C, Anticoagulant Therapy - Surgical History Surgical History: Yes Surgery Procedure, Year, and Place: Left Breast Lumpectomy, 2012, [place]. Complete Hysterectomy, (age-37) 1992, [facility] - Family History Known Family History: Positive: Hypertension, Diabetes - Social History Alcohol Use: Occasionally Substance Use Type: None Smoking Status (MU): Former Smoker Length of Time of Smoking/Using Tobacco: ~1 PPD x 8 Years Have You Smoked in the Last Year: No When Did the Patient Quit Smoking/Using Tobacco: ~1977 - Immunization History Most Recent Influenza Vaccination: Not this Season Review of Systems All Other Systems Reviewed And Are Negative: Yes Constitutional: Positive: Negative Skin: Positive: Negative Eyes: Positive: Negative ENT: Positive: Other - Left-sided TMJ/jaw pain Respiratory: Positive: Negative Cardiovascular: Positive: Negative Gastrointestinal: Positive: Negative Genitourinary: Positive: Negative Motor: Positive: Negative Neurovascular: Positive: Negative Musculoskeletal: Positive: Negative Neurological: Positive: Negative Psychological: Positive: Negative Is Patient Immunocompromised?: No Physical Exam - Summary Physical Exam Summary: Physical Exam: Const: Appears well. No signs of apparent distress present. Alert and oriented x 3. Musculo: Walks with a normal gait. Head/Face: Atraumatic, normocephalic on inspection. Eyes: EOMI and PERRLA in both eyes. Conjunctivae clear. No discharge noted ENT: Hearing normal, TM normal appearing bilaterally No tenderness to palpation on maxillary and frontal sinus. No pharyngeal erythema or exudates . Uvula is midline. No cervical or submandibular lymphadenopathy noted. Oral cavity/dental examination: There is a denture noted, no gingival erythema or swelling. Percussion to the upper and lower left-sided teeth without any pain. There is tenderness to palpation at the left TMJ, limited range of motion at the TMJ . Respiratory: Respirations are unlabored. Lungs clear to auscultation bilaterally, no wheezing , rhonchi or rales noted . CVS: Regular rate and Rhythm, S1S2 normal , no murmurs identified. Extremities: Peripheral circulation is grossly normal. Pulses 2+ Abdomen : Soft non tender , nondistended , Bowel sounds present . No guarding , rebound tenderness or rigidity noted. Skin: No lesions or rash located on the upper extremities or on the lower extremities. Neuro: Cranial nerves II to XII intact, motor and sensory intact. DTR Intact bilaterally. Mood is normal. Affect is normal. Triage Information Reviewed: Yes Vital Signs Reviewed: Yes Diagnostics - Radiology No standard instances Radiology Interpretation Completed By: Radiologist - X-ray of mandible complete: 4 views of the mandible demonstrates no fracture. No evidence of arthritis of the temporal mandibular joints is noted. IMPRESSION: Unremarkable mandible. No evidence of TMJ arthritis is noted. Course/Dx - Course Course Of Treatment: During the visit today, we obtained x-rays of the mandible: Unremarkable mandible. No evidence of TMJ arthritis is noted. We discussed that it can be a possibility of her pain can be originating in her tooth but clinically does not appear so and plan to hold off any antibiotic. We discussed the findings and further plan to treat it as temporomandibular joint dysfunction. I will prescribe the medication to the pharmacy . Patient expressed understanding . - Diagnoses Provider Diagnosis: TMJPDS (temporomandibular joint pain dysfunction syndrome) Discharge - Sign-Out/Discharge Documenting (check all that apply): Patient Departure All imaging exams completed and their final reports reviewed: Yes - Discharge Plan Condition: Stable Disposition: HOME Prescriptions: Cyclobenzaprine TAB* [Flexeril 10 MG TAB*] 10 mg PO BID 10 Days #20 tab Cyclobenzaprine TAB* [Flexeril 10 MG TAB*] 10 mg PO BID 10 Days #20 tab Meloxicam 7.5 mg PO BID 15 Days #30 tablet Patient Education Materials: Temporomandibular Disorder (ED) Referrals: Loulou Salazar PA [Primary Care Provider] - 1 Week Randy Woods MD [Medical Doctor] - 2 Days Additional Instructions: Please start taking the medication as prescribed to the pharmacy . Follow up with ENT in 2 to 3 days . Also, please follow up with your dentist Patients blood pressure slightly high in Urgent care today , plan follow up with PCP for better control Return to Urgent care / ER if symptoms get worse. - Billing Disposition and Condition Condition: STABLE Disposition: Home
[2018-10-30 07:59] VITALS: BP 140/81
== END 2018-10-30 09:24 | disposition home or self-care (01) ==
LOC: UCCORT 07:46
DX: M26.622 Arthralgia of left temporomandibular joint (principal); I10 Essential (primary) hypertension; E78.5 Hyperlipidemia, unspecified; B15.9 Hepatitis A without hepatic coma; K21.9 Gastro-esophageal reflux disease without esophagitis; Z85.3 Personal history of malignant neoplasm of breast; Z87.891 Personal history of nicotine dependence; Z88.2 Allergy status to sulfonamides
CPT/HCPCS: 70110; 99212; G0463

== ENCOUNTER 2019-09-14 15:53 | Emergency (ER) | payer MEDICARE, BC ==
--- OUTSIDE RECORDS SUMMARY | 2019-09-14 16:07 | XMS REPORT | Continuity of Care Document ---
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 Problems Active Problems Provider Date Personal history of primary malignant neoplasm NADEEN Graham Onset: of breast Note: left/IDC, 2013 Essential hypertension NADEEN Graham Onset: 09/22/2018 Hyperlipidemia Loulou Salazar PA Onset: 09/22/2018 Vitamin D deficiency NADEEN Graham Onset: 09/22/2018 Undifferentiated connective tissue disease Loulou Salazar PA Onset: 2018 Note: 2013 Gastro-esophageal reflux disease with Loulou Salazar PA Onset: 09/22/2018 esophagitis Contact dermatitis due to detergent Loulou Salazar PA Onset: 09/22/2018 Serrated polyp of colon Loulou Salazar PA Onset: 09/22/2018 Note: SSA/P 03/2017 Diverticular disease of colon Loulou Salazar PA Onset: 09/22/2018 Social History Type Date Description Comments Sex Unknown ETOH Use Occasionally consumes alcohol Tobacco Use Start: Unknown End: Patient is a former smoker Unknown Smoking Status Reviewed: 08/28/19 Patient is a former smoker Exercise Type/Frequency Exercises regularly Allergies, Adverse Reactions, Alerts Active Allergies Reaction Severity Comments Date Lamisil 09/22/2018 Lisinopril 09/22/2018 Arimidex 09/22/2018 Montelukast insomnia 10/03/2018 Medications Active Medications SIG Qnty Indications Ordering Date Provider Boostrix 0.5ml intramuscular .500ml Randy 04/18/2019 x 1 (or Adacel if MD Barb 5-2.5-18.5LF-mcg/0.5 Boostrix Suspension unavailable) Prevnar 13 0.5 ml intramuscular .500ml [place] 04/18/2019 x 1 MD Barb Suspension Lansoprazole Take 1 Capsule Daily 90caps Randy 10/03/2018 15mg MD Barb Capsules DR Amlodipine Besylate 1 by mouth every day 90tabs Randy 09/22/2018 MD Barb 2.5mg Tablets Vitamin D-1000 1 tab by mouth every 09/22/2018 Maximum Strength day MD Barb 1000Unit Tablets Calcium 600+D High 1 tab by mouth every 09/22/2018 Potency day MD Barb [id number] Tablets Atorvastatin Calcium Take 1 Tablet Daily 90tabs Randy 09/22/2018 MD Barb 80mg Tablets Econazole Nitrate Thin layer to breast 30gm B35.4 Randy 09/22/2018 1% rash tid MD Barb Cream Immunizations CPT Code Status Date Vaccine Lot # [id number] Given 05/10/2008 Pneumonia Vaccine 90193 Given 01/07/2006 Tdap - Tetanus/Diptheria/Acellular Pertussis [id number] Given 05/20/1998 Pneumonia Vaccine Vital Signs Date Vital Result Comment 08/28/2019 10:36am Height 64 inches 5'4" Weight 148.00 lb Heart Rate 68 /min BP Systolic Sitting 148 mmHg BP Diastolic Sitting 86 mmHg O2 % BldC Oximetry 98 % BMI (Body Mass Index) 25.4 kg/m2 03/28/2019 2:44pm Height 64 inches 5'4" Weight 142.56 lb Heart Rate 68 /min BP Systolic Sitting 128 mmHg BP Diastolic Sitting 74 mmHg O2 % BldC Oximetry 97 % BMI (Body Mass Index) 24.5 kg/m2 Results Description No Information Available Procedures Date Code Description Status 12/06/2018 [id number] Mammogram Completed 04/01/2017 [id number] Colonoscopy Completed Medical Devices Description No Information Available Encounters Type Date Location Provider Dx Diagnosis Office Visit 03/28/2019 [facility] Primary Care Loulou Salmon, I10 Essential ( primary) 2:30p PA hypertension E78.5 Hyperlipidemia, unspecified N94.10 Unspecified dyspareunia Assessments Date Code Description Provider 03/28/2019 I10 Essential (primary) hypertension Loulou Salazar, PA 03/28/2019 E78.5 Hyperlipidemia, unspecified Loulou Salazar, PA 03/28/2019 N94.10 Unspecified dyspareunia NADEEN Graham Plan of Treatment Future Appointment(s):01/11/2020 8:20 am - Alcides Allison MD at [facility] Dermatology Functional Status Functional Condition Comment Date Status Glasses Active Mental Status Description No Information Available Referrals Description No Information Available
[2019-09-14 19:15] VITALS: BP 147/78
--- NOTE | 2019-09-14 19:49 | UC ---
Complaint Female HPI - HPI Summary HPI Summary: 64-year-old female presenting with dysuria and urinary frequency 3 days. Denies hematuria. Patient states she was seen by [facility] and treated with an antibiotic twice a day for 3 days but states she isn't sure what the antibiotic name is. States those other day and she finished the antibiotic without relief of symptoms. Patient states a culture was not sent of the urine. Denies abdominal pain or discomfort. Denies fever and chills. Denies nausea and vomiting. Denies flank pain. Denies taking anything else for symptom relief. - History Of Current Complaint Chief Complaint: UCGU Stated Complaint: UTI Hx Obtained From: Patient Hx Last Menstrual Period: n/a Pain Intensity: 0 - Allergies/Home Medications Allergies/Adverse Reactions: Allergies Allergy/AdvReac Type Severity Reaction Status Date / Time Estrogens Allergy See Comment Verified 09/14/19 16:59 Sulfa (Sulfonamide Allergy Unknown Verified 09/14/19 16:59 Antibiotics) Reaction Details Home Medications: Home Medications Lansoprazole CAP (NF) [Prevacid CAP (NF)] 30 mg PO DAILY 05/22/18 [History Confirmed 09/14/19] amLODIPine TAB* [Norvasc 5 mg TAB*] 5 mg PO DAILY 05/22/18 [History Confirmed ] Fluticasone NASAL SPRAY 50MCG* [Flonase NASAL SPRAY 50MCG*] 2 spray INTRANASAL DAILY PRN 06/03/18 [History Confirmed 09/14/19] Econazole 1% CREAM (NF) [Econazole 1 % CREAM (NF)] 1 applic TOPICAL DAILY [History Confirmed 09/14/19] Meloxicam 7.5 mg PO BID 15 Days #30 tablet 10/30/18 [Rx Confirmed 09/14/19] Cephalexin CAP* [Keflex CAP*] 500 mg PO TID #21 cap 09/14/19 [Rx] Phenazopyridine TAB* [Pyridium 100 mg TAB*] 100 mg PO TID #12 tab 09/14/19 [Rx] PMH/Surg Hx/FS Hx/Imm Hx Cardiovascular History: Hypertension Other History Of: Hepatitis B - She had hepatitis when she was 16 years old-- type is unknown. Negative For: HIV, Hepatitis C, Anticoagulant Therapy - Surgical History Surgical History: Yes Surgery Procedure, Year, and Place: Left Breast Lumpectomy, 2013, [place]. Complete Hysterectomy, (age-37) 1992, [facility] - Family History Known Family History: Positive: Hypertension, Diabetes - Social History Alcohol Use: Rare Substance Use Type: None Smoking Status (MU): Former Smoker Length of Time of Smoking/Using Tobacco: ~1 PPD x 8 Years Have You Smoked in the Last Year: No When Did the Patient Quit Smoking/Using Tobacco: ~1977 - Immunization History Most Recent Influenza Vaccination: Not this Season Review of Systems All Other Systems Reviewed And Are Negative: Yes Constitutional: Positive: Negative Respiratory: Positive: Negative Cardiovascular: Positive: Negative Gastrointestinal: Positive: Negative Genitourinary: Positive: Dysuria, Frequency. Negative: Hematuria Musculoskeletal: Positive: Negative Neurological/Mental Status: Positive: Negative Physical Exam - Summary Physical Exam Summary: Vital Signs Reviewed: Yes A+Ox3, no distress, well-appearing Eyes: Conjunctiva Clear ENT: Hearing grossly normal Neck: Positive: Supple Respiratory: Positive: No respiratory distress, No accessory muscle use Cardiovascular: skin reflects adequate perfusion Musculoskeletal Exam: WADE x 4 without difficulty Neurological: Positive: Alert Psychological: Positive: age appropriate behavior Skin: Positive: no rash, no ecchymosis Vital Signs: Initial Vital Signs Temp 97.6 F 09/14/19 17:00 Pulse 62 09/14/19 17:00 Resp 17 09/14/19 17:00 BP 139/68 09/14/19 17:00 Pulse Ox 98 09/14/19 17:00 Lab Results 09/14/19 Range/Units 18:54 POC Urine Color Yellow POC Urine Clarity Clear POC Urine pH 6.0 (5-9) POC Ur Specif [place] 1.010 (1.010-1.030) POC Urine Protein Negative (Negative) POC Ur Glucose (UA) Negative (Negative) POC Urine Ketones Negative (Negative) POC Urine Blood Negative (Negative) POC Urine Nitrite Negative (Negative) POC Urine Bilirubin Negative (Negative) POC Urine Urobilinogen 0.2 (Negative) POC U Leukocyte Esteras 1+ A (Negative) Complaint Female Dx - Course Course Of Treatment: UA 1+leuks. I looked up patient's antibiotic and found it was Bactrim. I treated the patient with Keflex and pyridium to provide further coverage and longer treatment for possible unresolved UTI. I informed the patient that a urine culture was sent and that she would be notified with any results that warrant change in treatment. Instructed to follow up with pcp or urology referral if symptoms persist. Educated on worsening illness and instructed to go to ED with any new or worsening symptoms. Patient voiced understanding and agreed with treatment plan. - Differential Dx/Diagnosis Provider Diagnosis: UTI (urinary tract infection) Discharge ED - Sign-Out/Discharge Documenting (check all that apply): Patient Departure All imaging exams completed and their final reports reviewed: No Studies - Discharge Plan Condition: Stable Disposition: HOME Prescriptions: Cephalexin CAP* [Keflex CAP*] 500 mg PO TID #21 cap Phenazopyridine TAB* [Pyridium 100 mg TAB*] 100 mg PO TID #12 tab Patient Education Materials: Urinary Tract Infection in Women (ED) Referrals: Loulou Salazar PA [Primary Care Provider] - If Needed Jun Buchanan MD [Medical Doctor] - If Needed Additional Instructions: Take Keflex as prescribed for treatment of your UTI. You may also take the pyridium as needed for symptomatic relief. Your urine was sent for culture and you will be notified with any results that warrant change in treatment. Increase your fluid intake. Follow up with your PCP or the urology referral listed below if symptoms persist. Return or go to emergency room with any new or worsening symptoms. - Billing Disposition and Condition Condition: STABLE Disposition: Home
== END 2019-09-14 20:02 | disposition home or self-care (01) ==
LOC: UCCORT 15:53
DX: N39.0 Urinary tract infection, site not specified (principal); I10 Essential (primary) hypertension; Z88.2 Allergy status to sulfonamides; Z87.891 Personal history of nicotine dependence; Z79.899 Other long term (current) drug therapy; Z88.8 Allergy status to other drugs, medicaments and biological substances
CPT/HCPCS: 81003; 87086; 99212; G0463